=== PATIENT | female | born 1985 | race Caucasian/White ===

== ENCOUNTER → 2016-06-14 | Outpatient (CLI) | payer BC ==
[~2016-06-14] MED LIST: Iopamidol 755 MG/ML 500 ML Multipack Bottle IVPUSH STA
--- NOTE | 2016-06-16 09:59 | CT ---
EXAM DATE: 06/14/16 PATIENT'S AGE: 30 Patient: TAMMI GARRETT Facility: [facility] Site . Site : 1985 Study: CT-Abdomen/Pelvis W/ and W/O Cont [id number] 2:43:03 PM Ordering Physician: Mendy Nicholas Final Report: INDICATION: Abdominal distention and pain. Weight loss. Bloody stool. TECHNIQUE: Oral contrast mixture was administered prior to scanning. Volumetric helical scanning of the abdomen and pelvis was performed without and with 60 cc of Isovue 370 contrast material IV. Coronal and sagittal reconstructions were obtained. COMPARISON: None. FINDINGS: There is no evidence of bowel obstruction or inflammation. The appendix is not identified with certainty. No free fluid or free air is demonstrated. The liver is unremarkable except for several small cysts. No bile duct dilation is evident. The spleen, adrenal glands and pancreas are within normal limits. The kidneys are unremarkable. No lymphadenopathy is evident. The uterus and ovaries are unremarkable. The lung bases are clear. The heart is normal in size. IMPRESSION: 1. Etiology of patient`s symptoms not evident. No bowel abnormality apparent. 2. Small liver cysts. Dictated by Phil Gomez MD @ Jun 16 2016 8:01AM Signed by: Phil Gomez MD @06/16/2016 8:10:38 AM (Electronic Signature) Report Signed by Proxy and Original Signed Document filed in the Medical Record. [facility]OSPITAL[facility]uyen
== END ==
LOC: MW.DI 14:09
PROVIDERS: ATTEND Surgery
DX: R14.0 Abdominal distension (gaseous) (principal); K55.1 Chronic vascular disorders of intestine
CPT/HCPCS: 74178; Q9967

== ENCOUNTER 2016-06-23 10:02 | Day surgery (SDC) | payer BC ==
[~2016-06-23 10:02] MED LIST changes: -Iopamidol 755 MG/ML 500 ML Multipack Bottle IVPUSH STA; +Sodium Chloride 0.9% 10 ML Syringe FLUSH PRN; +Sodium Chloride 0.9% 2.5 ML Syringe FLUSH PRN
[2016-06-23] MEDS: Lactated Ringers 1,000 ML IV SCH (10:22)
--- NOTE | 2016-06-23 10:24 | PCM.PREANE ---
Preanesthetic Assessment - Anesthesia/Transfusion/Family Hx Anesthesia History: Prior Anesthesia Without Reaction Family History of Anesthesia Reaction: No Transfusion History: No Prior Transfusion(s) - Review of Systems General: No Symptoms Pulmonary: No Symptoms Cardiovascular: No Symptoms Gastrointestinal: No symptoms Neurological: No Symptoms Other: Reports: None - Physical Assessment O2 Sat by Pulse Oximetry: 100 Respiratory Rate: 14 Vital Signs: Last Vital Signs Temp 36.4 C 06/23/16 10:17 Pulse 76 06/23/16 10:17 Resp 14 06/23/16 10:17 BP 96/63 06/23/16 10:17 Pulse Ox 100 06/23/16 10:17 Height: 1.63 m Weight: 48.534 kg ASA Class: 2 Mental Status: Alert & Oriented x3 Airway Class: Mallampati = 1 Dentition: Reports: Normal Dentition ROM/Head Extension: Full Lungs: Clear to auscultation, Normal respiratory effort Cardiovascular: Regular Rate, Regular Rhythm - Allergies Allergies/Adverse Reactions: Allergies Allergy/AdvReac Type Severity Reaction Status Date / Time lactose Allergy Stomach Verified 06/21/16 10:09 Upset - Blood Blood Available: No - Anesthesia Plan Pre-Op Medication Ordered: None - Acknowledgements Anesthesia Type Planned: MAC Pt an Appropriate Candidate for the Planned Anesthesia: Yes Alternatives and Risks of Anesthesia Discussed w Pt/Guardian: Yes Pt/Guardian Understands and Agrees with Anesthesia Plan: Yes PreAnesthesia Questionnaire Other HEENT History: wears glasses Cardiovascular History: Reports: None Respiratory History: Reports: None Gastrointestinal History: Reports: Chronic constipation Other Gastrointestinal History: being tested for SMA syndrome Genitourinary History: Reports: None VIDEO NEWS EDITOR History: Reports: None Musculoskeletal History: Reports: Fracture Other Musculoskeletal History: hx of fx left heel and right arm (no hardware) Neurological History: Reports: None Psychiatric History: Reports: ADD Endocrine/Metabolic History: Reports: Hyperthyroidism Other Endocrine/Metabolic History: hx of hyperthyroidism, recent tests show thyroid to be normal Hematologic History: Reports: None Immunologic History: Reports: None Oncologic (Cancer) History: Reports: None Dermatologic History: Reports: Other (see below) Other Dermatologic History: adult acne - Past Surgical History Head Surgeries/Procedures: Reports: None HEENT Surgical History: Reports: Tonsillectomy Cardiovascular Surgical History: Reports: None Respiratory Surgical History: Reports: None GI Surgical History: Reports: Appendectomy Female Surgical History: Reports: None Endocrine Surgical History: Reports: None Neurological Surgical History: Reports: None Musculoskeletal Surgical History: Reports: None Oncologic Surgical History: Reports: None Dermatological Surgical History: Reports: None - SUBSTANCE USE Smoking Status *Q: Former Smoker Tobacco Use Within Last Twelve Months: Cigarettes Recreational Drug Use History: No - HOME MEDS Home Medications: Home Meds Lisdexamfetamine Dimesylate [Vyvanse] 1 tab PO DAILY 06/21/16 [History] Lubiprostone [Amitiza] 1 tab PO DAILY 06/21/16 [History] Multivitamin [Multivitamins] 1 tab PO DAILY 06/21/16 [History] - CURRENT (IN HOUSE) MEDS Current Meds: Current Medications Lactated Ringer's (Ringers, Lactated) 1,000 mls @ 125 mls/hr IV ASDIRECTED RANDEE Last Admin: 06/23/16 10:22 Dose: 125 mls/hr Sodium Chloride (Saline Flush) 10 ml FLUSH ASDIRECTED PRN PRN Reason: Keep Vein Open Sodium Chloride (Saline Flush) 2.5 ml FLUSH ASDIRECTED PRN PRN Reason: Keep Vein Open Preanesthetic Assessment - ANESTHESIA/TRANSFUSION/FAMILY HX Family History of Anesthesia Reaction: No - PHYSICAL ASSESSMENT O2 Sat by Pulse Oximetry: 100 RR: 14 Vital Signs: Last Vital Signs Temp 36.4 C 06/23/16 10:17 Pulse 76 06/23/16 10:17 Resp 14 06/23/16 10:17 BP 96/63 06/23/16 10:17 Pulse Ox 100 06/23/16 10:17 Height: 1.63 m Weight: 48.534 kg - ALLERGIES Allergies/Adverse Reactions: Allergies Allergy/AdvReac Type Severity Reaction Status Date / Time lactose Allergy Stomach Verified 06/21/16 10:09 Upset
[2016-06-23] MEDS ORDERED: Propofol 200 MG/20 ML SDV ONE ×2 (11:01→11:29)
[2016-06-23] MEDS ORDERED: fentaNYL 100 MCG/2 ML SDV ONE (11:01)
[2016-06-23] MEDS ORDERED: Midazolam 1 MG/ML 2 ML SDV ONE (11:01)
[2016-06-23] MEDS ORDERED: Lidocaine 2% 5 ML SDV ONE (11:01)
--- NOTE | 2016-06-23 11:50 | PCM.OPNOTE ---
- General Post-Op/Procedure Note Date of Surgery/Procedure: 06/23/16 Operative Procedure(s): Diagnostic egd and colonoscopy Findings: Normal EGD and colonoscopy Pre Op Diagnosis: Post prandial nausea and vomiting Post-Op Diagnosis: same Anesthesia Technique: MAC Primary Surgeon: Yu Brooke Condition: Good
[2016-06-23 12:23] VITALS: BP 96/54
--- NOTE | 2016-06-23 12:33 | PCM.POSTAN ---
POST ANESTHESIA ASSESSMENT - MENTAL STATUS Mental Status: alert, oriented - RESPIRATORY Respiratory Status: respiratory rate WNL, airway patent, O2 saturation stable - CARDIOVASCULAR CV Status: pulse rate WNL, blood pressure stable - GASTROINTESTINAL GI Status: no symptoms - POST OP HYDRATION Hydration Status: adequate & stable - OBSERVATIONS Free Text/Narrative:: no anesthesia problems
--- NOTE | 2016-06-23 18:48 | OR ---
SURGEON: LINDA FLORES MD DATE OF PROCEDURE: 06/23/2016 PREOPERATIVE DIAGNOSIS: Postprandial nausea and left upper quadrant pain. POSTOPERATIVE DIAGNOSIS: Postprandial nausea and left upper quadrant pain. PROCEDURE PERFORMED: Diagnostic esophagogastroduodenoscopy and colonoscopy. INSTRUMENT USED: Olympus endoscope and colonoscope. ANESTHESIA: MAC. EXTENT OF EXAM: To the second portion of the duodenum in the EGD portion and to the cecum in the colonoscopic portion. PREPARATION: Good. LIMITATIONS: None. INDICATIONS FOR EXAMINATION: The patient is a 30-year-old female, who has been experiencing postprandial abdominal pain and nausea. The patient has developed a food fear and is only eating one small meal at night. The patient's BMI is currently 17. A workup was completed including a CT of the abdomen which suggest possible SMA syndrome. As a part of her workup, we discussed performing a diagnostic EGD and colonoscopy. I explained to the patient, the procedure as well as expected perioperative course. We discussed the risks of the procedures including bleeding, infection, or damage to surrounding structures, including perforation. The patient verbalized understanding and wishes to proceed. PROCEDURE IN DETAIL: The patient was brought into the endoscopy suite and placed in the beach chair position. A time-out was completed verifying the patient's name, age, date of , allergies, and procedure to be performed. A bite-block was placed in the patient's mouth and monitored anesthesia care was induced. Oxygen was provided via nasal cannula throughout the procedure. After adequate sedation was achieved, the endoscope was placed in the patient's mouth and advanced under direct visualization to the level of the second portion of the duodenum. A photograph was taken within the second portion of the duodenum and the scope was slowly brought back while examining the color, texture, anatomy, and integrity of the mucosa along the upper GI tract. The duodenum appeared normal. The scope was brought into the stomach and a picture was taken of the pylorus as well as the esophageal hiatus which all appeared normal. The gastric mucosa showed no evidence of inflammation or ulceration. Biopsies were taken of the antrum, body, and fundus of the gastric mucosa. These biopsies were sent for H. pylori culture. The scope was then brought into the esophagus and a picture was taken of the GE junction which appeared normal. The scope was then removed from the patient and this completed the EGD portion of the exam. The patient was then turned into the left lateral decubitus position. Digital rectal exam was performed which was normal. A well-lubricated colonoscope was inserted in the rectum and advanced under direct visualization to the level of the cecum. The cecum was identified by both visual and anatomic landmarks. A photograph was taken of the cecal cap as well as with the scope retroflexed within the cecum. The scope was then straightened out and fully withdrawn while examining the color, texture, anatomy, and integrity of the mucosa from the cecum to the anal canal. The findings were consistent with normal colonic mucosa. The scope was brought into the rectum and retroflexed to allow visualization of the anal canal opening. This appeared normal and a photograph was taken. The scope was straightened out and removed from the patient. The cecum to anus time was 7 minutes. The patient was awoken and transferred to the recovery room in stable condition. ENDOSCOPIC DIAGNOSES: Normal esophagogastroduodenoscopy and colonoscopy. RECOMMENDATIONS: Follow up with the toy electric train repairer as previously arranged in clinic. REBEL ELMORE /[id number]
== END 2016-06-23 12:43 | disposition home or self-care (01) ==
LOC: MW.SDS 10:02
PROVIDERS: ATTEND Surgery
DX: K29.50 Unspecified chronic gastritis without bleeding (principal); Z88.8 Allergy status to other drugs, medicaments and biological substances; Z79.899 Other long term (current) drug therapy; Z90.49 Acquired absence of other specified parts of digestive tract; Z98.890 Other specified postprocedural states; Z86.39 Personal history of other endocrine, nutritional and metabolic disease; Z87.891 Personal history of nicotine dependence; Z72.0 Tobacco use
CPT/HCPCS: 43239; 45378; 81025; 88305; 88312; J2250; J3010; J7120; 00740; J2704

== ENCOUNTER 2016-09-11 15:17 | Emergency (ER) | payer BC ==
--- NOTE | 2016-09-11 15:35 | EDM.PDOC ---
ED HPI GENERAL MEDICAL PROBLEM - General Chief Complaint: Abdominal Pain Stated Complaint: NOT FEELING WELL Time Seen by Provider: 09/11/16 15:19 Source of Information: Reports: Patient History Limitations: Reports: No Limitations - History of Present Illness INITIAL COMMENTS - FREE TEXT/NARRATIVE: History of present illness: [] Patient has been dealing with abdominal pain for 2 years and has been evaluated at [facility] with testing but did not followup. She has had vomiting and is not been able to tolerate any food. She has been able to tolerate water. Her last bowel movement and last flatus was yesterday. 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 Patient also complains of lightheadedness, palpitations and a right-sided facial droop that began last night. Review of systems: As per history of present illness and below otherwise all systems reviewed and negative. Past medical history: As per history of present illness and as reviewed below otherwise noncontributory. Surgical history: As per history of present illness and as reviewed below otherwise noncontributory. Social history: No reported history of drug or alcohol abuse. Family history: As per history of present illness and as reviewed below otherwise noncontributory. Physical exam: General: Well developed, appears thin and dehydrated, speech is slow HEENT: Atraumatic, right-sided facial droop, pupils reactive, negative for conjunctival pallor or scleral icterus, mucous membranes moist, throat clear, neck supple, nontender, trachea midline. Lungs: Clear to auscultation, breath sounds equal bilaterally, chest nontender. Heart: S1S2, regular, negative for clicks, rubs, or JVD. Abdomen: Soft, nondistended, diffuse. Negative for masses or hepatosplenomegaly. Negative for costovertebral tenderness. Pelvis: Stable nontender. Genitourinary: Deferred. Rectal: Deferred. Extremities: Atraumatic, negative for cords or calf pain. Neurovascular unremarkable. Neuro: Awake, alert, oriented. Right-sided facial droop that is witnessed to be intermittent while she was in the ED. Cerebellum unremarkable. Motor and sensory unremarkable throughout. Exam nonfocal. Diagnostics: []labs show low potassium and chloride 2.6/87, abdominal x-rays ruling out obstruction, CT head done due to to the facial droop which is negative. EKG NSR , mildly prolonged QT, normal otherwise. Therapeutics: []patient was given IV hydration and pain meds while in the ED with improvement. 80 mEq of potassium chloride by mouth given Impression: []hypokalemia and hypochloremia secondary to vomiting. I called the hospitalist for potential admission. Since pt tolerated 80mEq Kcl in ED without further vomiting and a pre-made appointment with her PMD tomorrow, she can be d/ c'd with repeat KCL doses and recheck k+ level tomorrow. Pt is comfortable with this. Plan: []Zofran for nausea, take potassium supplement daily as directed,Tylenol for pain. Followup PMD for repeat potassium tomorrow as scheduled Definitive disposition and diagnosis as appropriate pending reevaluation and review of above. abdomen Pain Score (Numeric/FACES): 8 - Related Data Allergies Allergy/AdvReac Type Severity Reaction Status Date / Time lactose Allergy Stomach Verified 09/11/16 15:23 Upset Home Meds: Home Meds Lisdexamfetamine Dimesylate [Vyvanse] 1 tab PO DAILY 06/21/16 [History] Ondansetron [Zofran ODT] 4 mg PO Q4H PRN #12 tab.dis 09/11/16 [Rx] Potassium Chloride 20 meq PO DAILY #7 tablet.er 09/11/16 [Rx] Past Medical History Other HEENT History: wears glasses Cardiovascular History: Reports: None Respiratory History: Reports: None Gastrointestinal History: Reports: Chronic Constipation Other Gastrointestinal History: being tested for SMA syndrome Genitourinary History: Reports: None 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 History: Reports: None Musculoskeletal History: Reports: Fracture Other Musculoskeletal History: hx of fx left heel and right arm (no hardware) Neurological History: Reports: None Psychiatric History: Reports: ADD Endocrine/Metabolic History: Reports: Hyperthyroidism Other Endocrine/Metabolic History: hx of hyperthyroidism, recent tests show thyroid to be normal Hematologic History: Reports: None Immunologic History: Reports: None Oncologic (Cancer) History: Reports: None Dermatologic History: Reports: Other (See Below) Other Dermatologic History: adult acne - Past Surgical History Head Surgeries/Procedures: Reports: None HEENT Surgical History: Reports: Tonsillectomy Cardiovascular Surgical History: Reports: None Respiratory Surgical History: Reports: None GI Surgical History: Reports: Appendectomy Female Surgical History: Reports: None Endocrine Surgical History: Reports: None Neurological Surgical History: Reports: None Musculoskeletal Surgical History: Reports: None Oncologic Surgical History: Reports: None Dermatological Surgical History: Reports: None Social & Family History - Tobacco Use Smoking Status *Q: Former Smoker - Recreational Drug Use Recreational Drug Use: No Drug Use in Last 12 Months: No ED ROS GENERAL - Review of Systems Review Of Systems: See Below (See history of present illness) ED EXAM, GENERAL - Physical Exam Exam: See Below (See history of present illness) Course - Vital Signs Last Recorded V/S: Last Vital Signs Temp 36.9 C 09/11/16 15:25 Pulse 73 09/11/16 19:04 Resp 18 09/11/16 19:04 BP 99/64 09/11/16 19:04 Pulse Ox 99 09/11/16 19:04 - Orders/Labs/Meds Orders: Active Orders 24 hr Category Date Time Status EKG Documentation Completion [RC] STAT Care 09/11/16 15:48 Active Acute Abdominal Series [Abdomen 1V Upright] [CR] Stat Exams 09/11/16 15:36 Taken Head wo Cont [CT] Stat Exams 09/11/16 15:38 Taken Saline Lock Insert [OM.PC] Stat Oth 09/11/16 15:38 Ordered Labs: Laboratory Tests 09/11/16 09/11/16 09/11/16 Range/Units 16:15 16:15 16:15 WBC 7.83 (4.0-11.0) K/uL RBC 5.10 (4.30-5.90) M/uL Hgb 16.2 H (12.0-16.0) g/dL Hct 47.5 H (36.0-46.0) % MCV 93.1 (80.0-98.0) fL MCH 31.8 (27.0-32.0) pg MCHC 34.1 (31.0-37.0) g/dL RDW Std Deviation 40.8 (28.0-62.0) fl RDW Coeff of Juju 12 (11.0-15.0) % Plt Count 294 (150-400) K/uL MPV 10.70 (7.40-12.00) fL Neut % (Auto) 53.0 (48.0-80.0) % Lymph % (Auto) 29.4 (16.0-40.0) % [place] % (Auto) 13.8 (0.0-15.0) % Eos % (Auto) 3.2 (0.0-7.0) % Baso % (Auto) 0.6 (0.0-1.5) % Neut # (Auto) 4.2 (1.4-5.7) K/uL Lymph # (Auto) 2.3 (0.6-2.4) K/uL [place] # (Auto) 1.1 H (0.0-0.8) K/uL Eos # (Auto) 0.3 (0.0-0.7) K/uL Baso # (Auto) 0.1 (0.0-0.1) K/uL Nucleated RBC % 0.0 /100WBC Nucleated RBCs # 0 K/uL Sodium 134 L (136-146) mmol/L Potassium 2.6 L (3.5-5.1) mmol/L Chloride 87 L (98-110) mmol/L Carbon Dioxide 32 H (21-31) mmol/L BUN 20 (6.0-23.0) mg/dL Creatinine 1.2 (0.6-1.5) mg/dL Est Cr Clr Drug Dosing 52.81 mL/min Estimated GFR (MDRD) 52.7 ml/min Glucose 96 (60-110) mg/dL Calcium 8.6 L (8.8-10.8) mg/dL Total Bilirubin 0.8 (0.1-1.5) mg/dL AST 33 (5-40) IU/L ALT 28 (8-54) IU/L Alkaline Phosphatase 57 (40-150) Total Protein 7.4 (6.0-8.0) g/dL Albumin 4.7 (3.5-5.0) g/dL Globulin 2.7 (2.0-3.5) g/dL Albumin/Globulin Ratio 1.7 (1.3-2.8) Lipase 32 (7-80) U/L Urine Color Urine Appearance Urine pH (5.0-8.0) Ur Specific [place] (1.001-1.035) Urine Protein (NEGATIVE) mg/dL Urine Glucose (UA) (NEGATIVE) mg/dL Urine Ketones (NEGATIVE) mg/dL Urine Occult Blood (NEGATIVE) Urine Nitrite (NEGATIVE) Urine Bilirubin (NEGATIVE) Urine Urobilinogen (<2.0) EU/dL Ur Leukocyte Esterase (NEGATIVE) Urine RBC (0-2/HPF) Urine WBC (0-5/HPF) Ur Epithelial Cells (NONE-FEW) Urine Bacteria (NEGATIVE) Urine HCG, Qual NEGATIVE (NEGATIVE) 09/11/16 Range/Units 16:15 WBC (4.0-11.0) K/uL RBC (4.30-5.90) M/uL Hgb (12.0-16.0) g/dL Hct (36.0-46.0) % MCV (80.0-98.0) fL MCH (27.0-32.0) pg MCHC (31.0-37.0) g/dL RDW Std Deviation (28.0-62.0) fl RDW Coeff of Juju (11.0-15.0) % Plt Count (150-400) K/uL MPV (7.40-12.00) fL Neut % (Auto) (48.0-80.0) % Lymph % (Auto) (16.0-40.0) % [place] % (Auto) (0.0-15.0) % Eos % (Auto) (0.0-7.0) % Baso % (Auto) (0.0-1.5) % Neut # (Auto) (1.4-5.7) K/uL Lymph # (Auto) (0.6-2.4) K/uL [place] # (Auto) (0.0-0.8) K/uL Eos # (Auto) (0.0-0.7) K/uL Baso # (Auto) (0.0-0.1) K/uL Nucleated RBC % /100WBC Nucleated RBCs # K/uL Sodium (136-146) mmol/L Potassium (3.5-5.1) mmol/L Chloride (98-110) mmol/L Carbon Dioxide (21-31) mmol/L BUN (6.0-23.0) mg/dL Creatinine (0.6-1.5) mg/dL Est Cr Clr Drug Dosing mL/min Estimated GFR (MDRD) ml/min Glucose (60-110) mg/dL Calcium (8.8-10.8) mg/dL Total Bilirubin (0.1-1.5) mg/dL AST (5-40) IU/L ALT (8-54) IU/L Alkaline Phosphatase (40-150) Total Protein (6.0-8.0) g/dL Albumin (3.5-5.0) g/dL Globulin (2.0-3.5) g/dL Albumin/Globulin Ratio (1.3-2.8) Lipase (7-80) U/L Urine Color YELLOW Urine Appearance CLEAR Urine pH 6.5 (5.0-8.0) Ur Specific [place] 1.010 (1.001-1.035) Urine Protein NEGATIVE (NEGATIVE) mg/dL Urine Glucose (UA) NEGATIVE (NEGATIVE) mg/dL Urine Ketones NEGATIVE (NEGATIVE) mg/dL Urine Occult Blood SMALL H (NEGATIVE) Urine Nitrite NEGATIVE (NEGATIVE) Urine Bilirubin NEGATIVE (NEGATIVE) Urine Urobilinogen 0.2 (<2.0) EU/dL Ur Leukocyte Esterase NEGATIVE (NEGATIVE) Urine RBC 0-3 (0-2/HPF) Urine WBC 0-1 (0-5/HPF) Ur Epithelial Cells FEW (NONE-FEW) Urine Bacteria RARE (NEGATIVE) Urine HCG, Qual (NEGATIVE) Meds: Medications Discontinued Medications Generic Name Dose Route Start Last Admin Trade Name Freq PRN Reason Stop Dose Admin Sodium Chloride 1,000 mls @ 999 mls/hr 09/11/16 15:37 09/11/16 16:17 Normal Saline IV 09/11/16 16:37 999 mls/hr .Bolus ONE Administration Ondansetron HCl 4 mg 09/11/16 15:37 09/11/16 16:17 Zofran IVPUSH 09/11/16 15:38 4 mg ONETIME ONE Administration Ondansetron HCl Confirm 09/11/16 18:33 09/11/16 19:02 Zofran Administered 09/11/16 18:34 Not Given Dose 4 mg .ROUTE .STK-MED ONE Ondansetron HCl 4 mg 09/11/16 18:35 09/11/16 18:36 Zofran IVPUSH 09/11/16 18:36 4 mg ONETIME ONE Administration Potassium Chloride 80 meq 09/11/16 18:23 09/11/16 18:42 Klor-Con M20 PO 09/11/16 18:24 80 meq ONETIME ONE Administration Departure - Departure Time of Disposition: 18:41 Disposition: Home, Self-Care 01 Condition: good Clinical Impression: Hypokalemia, gastrointestinal losses, Hypochloremia - Discharge Information Prescriptions: Ondansetron [Zofran ODT] 4 mg PO Q4H PRN #12 tab.dis PRN Reason: Nausea Potassium Chloride 20 meq PO DAILY #7 tablet.er Instructions: Hypokalemia Referrals: PCP,None [Primary Care Provider] - Forms: ED Department Discharge Additional Instructions: The following information is given to patients seen in the emergency department who are being discharged to home. This information is to outline your options for follow-up care. We provide all patients seen in our emergency department with a follow-up referral. The need for follow-up, as well as the timing and circumstances, are variable depending upon the specifics of your emergency department visit. If you don't have a primary care physician on staff, we will provide you with a referral. We always advise you to contact your personal physician following an emergency department visit to inform them of the circumstance of the visit and for follow-up with them and/or the need for any referrals to a consulting specialist. The emergency department will also refer you to a specialist when appropriate. This referral assures that you have the opportunity for follow-up care with a specialist. All of these measure are taken in an effort to provide you with optimal care, which includes your follow-up. Under all circumstances we always encourage you to contact your private physician who remains a resource for coordinating your care. When calling for follow-up care, please make the office aware that this follow-up is from your recent emergency room visit. If for any reason you are refused follow-up, please contact the [facility] Emergency Department at and asked to speak to the emergency department charge nurse. Low potassium. Follow up with primary care tomorrow for repeat potassium level. Take potassium supplements daily as directed. Return to ER if any symptoms worsen or change. [facility] [address] [place] [id number] - My Orders Last 24 Hours: My Active Orders 09/11/16 15:36 Acute Abdominal Series [Abdomen 1V Upright] [CR] Stat 09/11/16 15:38 Head wo Cont [CT] Stat Saline Lock Insert [OM.PC] Stat 09/11/16 15:48 EKG Documentation Completion [RC] STAT - Assessment/Plan Last 24 Hours: My Active Orders 09/11/16 15:36 Acute Abdominal Series [Abdomen 1V Upright] [CR] Stat 09/11/16 15:38 Head wo Cont [CT] Stat Saline Lock Insert [OM.PC] Stat 09/11/16 15:48 EKG Documentation Completion [RC] STAT
[2016-09-11] MEDS ORDERED: Sodium Chloride 0.9% 1,000 ML IV ONE (15:37)
[2016-09-11] MEDS ORDERED: Ondansetron 4 MG/2 ML SDV IVPUSH ONE ×2 (15:37→18:35)
[2016-09-11] MEDS ORDERED: Sodium Chloride 0.9% 500 ML IV SCH (16:15)
[2016-09-11] MEDS ORDERED: Potassium Chloride 20 MEQ Tab.ER PO ONE (18:23)
[2016-09-11] MEDS: Ondansetron 4 MG/2 ML SDV ONE ×2 (18:36→19:02)
[2016-09-11 19:05] VITALS: BP 99/64
--- NOTE | 2016-09-12 10:07 | CT ---
EXAM DATE: 09/11/16 PATIENT'S AGE: 30 Patient: TAMMI GARRETT Facility: [place], [place] Site . Site : 1985 Study: CT Head [id number] 4:59:18 PM Ordering Physician: Eleno Glass Final Report: INDICATION: right sided facial droop since last night. dizzy, slurred speech. "pressure" in head, nausea, sinus pressure TECHNIQUE: CT Head without i.v. contrast. COMPARISON: None FINDINGS: CSF spaces: Within normal limits for age. Brain parenchyma: The brain parenchyma is normal in appearance with preservation of the nguyen-white matter junction. No sign of mass, hemorrhage, or midline shift. Skull base and calvarium: The visualized paranasal sinuses are well aerated. The mastoid air cells are clear. The visualized orbits are grossly unremarkable. No skull fractures are seen. C1 spina bifida occulta noted. IMPRESSION: 1. No CT evidence of acute infarct, hemorrhage, or mass effect seen. Dictated by: Jose Angel Beasley MD @ 09/11/2016 17:05:16 (Electronic Signature) Report Signed by Proxy. EVANGELINA
--- NOTE | 2016-09-12 10:08 | CR ---
EXAM DATE: 09/11/16 PATIENT'S AGE: 30 Patient: TAMMI GARRETT Facility: [place], [place] Site . Site : 1985 Study: XRay Abdomen [id number]/[id number] 5:03:34 PM Ordering Physician: Eleno Glass Final Report: INDICATION: Vomiting times for 5 days. Clinical suspicion for obstruction TECHNIQUE: Abdomen 3 view. COMPARISON: None FINDINGS: Bowel: Minimal air distended small bowel loops left upper quadrant but no definitive evidence for small bowel obstruction. Soft tissues: No sign of free air. No sign of soft tissue mass. No suspicious calcifications. Bones: Unremarkable for age. IMPRESSION: Unremarkable abdomen. No definitive evidence for bowel obstruction. Dictated by Mendoza Nugent MD @ 09/11/2016 5:12:15 PM Dictated by: Mendoza Nugent MD @ 09/11/2016 17:12:19 (Electronic Signature) Report Signed by Proxy. EVANGELINA
== END 2016-09-11 19:04 | disposition home or self-care (01) ==
LOC: MW.ED 15:17
DX: E87.6 Hypokalemia (principal); E87.8 Other disorders of electrolyte and fluid balance, not elsewhere classified; Z91.011 Allergy to milk products; Z79.899 Other long term (current) drug therapy; Z90.49 Acquired absence of other specified parts of digestive tract; Z98.890 Other specified postprocedural states; Z87.891 Personal history of nicotine dependence
CPT/HCPCS: 36415; 70450; 74000; 80053; 81001; 81025; 83690; 85025; 93005; 96361; 96374; 96376; 99284; A9270; J2405; J7040

== ENCOUNTER 2018-10-18 17:05 | Emergency (ER) | payer BC ==
[2018-10-18 17:16] VITALS: BP 123/74
--- NOTE | 2018-10-18 17:19 | EDM.PDOC ---
ED HPI GENERAL MEDICAL PROBLEM - General Chief Complaint: General Stated Complaint: MEDICAL CLEARANCE Time Seen by Provider: 10/18/18 17:06 Source of Information: Reports: Patient History Limitations: Reports: No Limitations - History of Present Illness INITIAL COMMENTS - FREE TEXT/NARRATIVE: History of present illness: []She is a months followed by Dr. Colon, brought in by police for alcohol intoxication. She states she has had an ultrasound doing an IUP and not had any complications with the . Review of systems: As per history of present illness and below otherwise all systems reviewed and negative. Past medical history: As per history of present illness and as reviewed below otherwise noncontributory. Surgical history: As per history of present illness and as reviewed below otherwise noncontributory. Social history: No reported history of drug or alcohol abuse. Family history: As per history of present illness and as reviewed below otherwise noncontributory. Physical exam: General: Well developed, well nourished in NAD HEENT: Atraumatic, normocephalic, pupils reactive, negative for conjunctival pallor or scleral icterus, mucous membranes moist, throat clear, neck supple, nontender, trachea midline. Lungs: Clear to auscultation, breath sounds equal bilaterally, chest nontender. Heart: S1S2, regular, negative for clicks, rubs, or JVD. Abdomen: NABS, Soft, nondistended, nontender heart tones 173 by Doppler. Negative for masses or hepatosplenomegaly. Negative for costovertebral tenderness. Pelvis: Stable nontender. Genitourinary: Deferred. Rectal: Deferred. Extremities: Atraumatic, negative for cords or calf pain. Neurovascular unremarkable. Neuro: Awake, alert, oriented. Cranial nerves II through XII unremarkable. Cerebellum unremarkable. Motor and sensory unremarkable throughout. Exam nonfocal. Skin:warm and dry Diagnostics: The heart tones-173 Therapeutics: None ED Course: Stable Impression: Medical clearance for incarceration Prescriptions: None Plan: Take meds as directed, follow up with your primary care physician, return to ER if symptoms worsen or change. Definitive disposition and diagnosis as appropriate pending reevaluation and review of above. - Related Data Allergies Allergy/AdvReac Type Severity Reaction Status Date / Time lactose Allergy Stomach Verified 09/11/16 15:23 Upset soy Allergy Nausea Verified 10/18/18 17:13 Home Meds: Home Meds Lisdexamfetamine Dimesylate [Vyvanse] 1 tab PO DAILY 06/21/16 [History] Ondansetron [Zofran ODT] 4 mg PO Q4H PRN #12 tab.dis 09/11/16 [Rx] Potassium Chloride 20 meq PO DAILY #7 tablet.er 09/11/16 [Rx] Past Medical History - Past Health History Medical/Surgical History: Denies Medical/Surgical History Other HEENT History: wears glasses Cardiovascular History: Reports: None Respiratory History: Reports: None Gastrointestinal History: Reports: Chronic Constipation Other Gastrointestinal History: being tested for SMA syndrome Genitourinary History: Reports: None 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 Musculoskeletal History: Reports: Fracture Other Musculoskeletal History: hx of fx left heel and right arm (no hardware) Neurological History: Reports: None Psychiatric History: Reports: ADD Endocrine/Metabolic History: Reports: Hyperthyroidism Other Endocrine/Metabolic History: hx of hyperthyroidism, recent tests show thyroid to be normal Hematologic History: Reports: None Immunologic History: Reports: None Oncologic (Cancer) History: Reports: None Dermatologic History: Reports: Other (See Below) Other Dermatologic History: adult acne - Past Surgical History Head Surgeries/Procedures: Reports: None HEENT Surgical History: Reports: Tonsillectomy Cardiovascular Surgical History: Reports: None Respiratory Surgical History: Reports: None GI Surgical History: Reports: Appendectomy Female Surgical History: Reports: None Endocrine Surgical History: Reports: None Neurological Surgical History: Reports: None Musculoskeletal Surgical History: Reports: None Oncologic Surgical History: Reports: None Dermatological Surgical History: Reports: None Social & Family History - Family History Family Medical History: Noncontributory ED ROS GENERAL - Review of Systems Review Of Systems: See Below ED EXAM, GENERAL - Physical Exam Exam: See Below Course - Vital Signs Last Recorded V/S: Last Vital Signs Temp 97.8 F 10/18/18 17:14 Pulse 115 H 10/18/18 17:14 Resp 18 10/18/18 17:14 BP 123/74 10/18/18 17:14 Pulse Ox 96 10/18/18 17:14 Departure - Departure Time of Disposition: 17:22 Disposition: Home, Self-Care 01 Condition: Good Clinical Impression: Medical clearance for incarceration - Discharge Information *PRESCRIPTION DRUG MONITORING PROGRAM REVIEWED*: No *COPY OF PRESCRIPTION DRUG MONITORING REPORT IN PATIENT RAJIV: No Referrals: PCP,None [Primary Care Provider] - Forms: ED Department Discharge Additional Instructions: The following information is given to patients seen in the emergency department who are being discharged to home. This information is to outline your options for follow-up care. We provide all patients seen in our emergency department with a follow-up referral. The need for follow-up, as well as the timing and circumstances, are variable depending upon the specifics of your emergency department visit. If you don't have a primary care physician on staff, we will provide you with a referral. We always advise you to contact your personal physician following an emergency department visit to inform them of the circumstance of the visit and for follow-up with them and/or the need for any referrals to a consulting specialist. The emergency department will also refer you to a specialist when appropriate. This referral assures that you have the opportunity for follow-up care with a specialist. All of these measure are taken in an effort to provide you with optimal care, which includes your follow-up. Under all circumstances we always encourage you to contact your private physician who remains a resource for coordinating your care. When calling for follow-up care, please make the office aware that this follow-up is from your recent emergency room visit. If for any reason you are refused follow-up, please contact the [facility] Emergency Department at and asked to speak to the emergency department charge nurse. [facility] - Women's [facility] [address] [place] [phone]
== END 2018-10-18 17:30 | disposition home or self-care (01) ==
LOC: MW.ED 17:05
DX: O99.311 Alcohol use complicating pregnancy, first trimester (principal); F10.129 Alcohol abuse with intoxication, unspecified; Z88.8 Allergy status to other drugs, medicaments and biological substances; Z98.890 Other specified postprocedural states; Z90.49 Acquired absence of other specified parts of digestive tract
CPT/HCPCS: 99282

== ENCOUNTER 2019-04-22 22:55 | Inpatient (IN) | payer SELFPAY ==
[2019-04-22] MEDS ORDERED: Butorphanol 1 MG/ML SDV IVPUSH PRN (23:17)
[2019-04-22] MEDS ORDERED: Carboprost Tromethamine 250 MCG/1 ML Amp IM PRN (23:17)
[2019-04-22] MEDS ORDERED: Sodium Chloride 0.9% 2.5 ML Syringe FLUSH PRN (23:17)
[2019-04-22] MEDS ORDERED: Sodium Chloride 0.9% 10 ML Syringe FLUSH PRN (23:17)
[2019-04-22] MEDS ORDERED: Tranexamic Acid 1,000 MG in Sodium Chloride 0.9% 100 ML IV PRN (23:17)
[2019-04-22] MEDS ORDERED: Water For Irrigation,Sterile 1,000 ML Container IRR PRN (23:17)
[2019-04-22] MEDS ORDERED: Sodium Chloride 0.9% 10 ML SDV IV PRN (23:17)
[2019-04-22] MEDS ORDERED: Lidocaine 1% 50 ML MDV INJECT PRN (23:17)
[2019-04-22] MEDS ORDERED: Methylergonovine 0.2 MG/1 ML Amp IM PRN (23:17)
[2019-04-22] MEDS ORDERED: Misoprostol 200 MCG Tab PO PRN (23:17)
[2019-04-22] MEDS ORDERED: Nalbuphine 10 MG/1 ML Vial IVPUSH PRN (23:17)
[2019-04-22] MEDS ORDERED: Oxytocin/0.9 % Sodium Chloride 30 UNIT/500 ML BAG IV SCH (23:30)
[2019-04-22] MEDS: Lactated Ringers 1,000 ML IV SCH (23:36)
[2019-04-23] MEDS ORDERED: Bupivicaine/fentaNYL/NS 250 ML ONE (00:08)
[2019-04-23] MEDS: Lactated Ringers 1,000 ML IV SCH (00:31)
--- NOTE | 2019-04-23 00:50 | PCM.PREANE ---
Preanesthetic Assessment - Procedure Proposed Procedure: continuous labor epidural - Anesthesia/Transfusion/Family Hx Anesthesia History: Prior Anesthesia Without Reaction Family History of Anesthesia Reaction: No Transfusion History: No Prior Transfusion(s) - Review of Systems General: No Symptoms Pulmonary: No Symptoms Cardiovascular: No Symptoms Gastrointestinal: No Symptoms Neurological: No Symptoms Other: Reports: None - Physical Assessment Height: 5 ft 2 in Weight: 68.039 kg ASA Class: 2 Mental Status: Alert & Oriented x3 Dentition: Reports: Normal Dentition ROM/Head Extension: Full Lungs: Clear to Auscultation, Normal Respiratory Effort Cardiovascular: Regular Rate, Regular Rhythm - Lab Values: Laboratory Last Values WBC 14.38 K/uL (4.0-11.0) H 04/22/19 23:33 RBC 4.08 M/uL (4.30-5.90) L 04/22/19 23:33 Hgb 13.6 g/dL (12.0-16.0) 04/22/19 23: Hct 39.6 % (36.0-46.0) 04/22/19 23: MCV 97.1 fL (80.0-98.0) 04/22/19 23:33 MCH 33.3 pg (27.0-32.0) H 04/22/19 23: MCHC 34.3 g/dL (31.0-37.0) 04/22/19 23:33 RDW Std Deviation 46.3 fl (28.0-62.0) 04/22/19 23:33 RDW Coeff of Juju 13 % (11.0-15.0) 04/22/19 23: Plt Count 237 K/uL (150-400) 04/22/19 23:33 MPV 11.10 fL (7.40-12.00) 04/22/19 23:33 Nucleated RBC % 0.0 /100WBC 04/22/19 23: Nucleated RBCs # 0 K/uL 04/22/19 23:33 Blood Type O NEGATIVE 04/22/19 23:33 Antibody Screen NEGATIVE 04/22/19 23:33 - Allergies Allergies/Adverse Reactions: Allergies Allergy/AdvReac Type Severity Reaction Status Date / Time lactose Allergy Stomach Verified 09/11/16 15:23 Upset soy Allergy Nausea Verified 10/18/18 17:13 - Acknowledgements Anesthesia Type Planned: Epidural Pt an Appropriate Candidate for the Planned Anesthesia: Yes Alternatives and Risks of Anesthesia Discussed w Pt/Guardian: Yes Pt/Guardian Understands and Agrees with Anesthesia Plan: Yes PreAnesthesia Questionnaire HEENT History: Reports: None Other HEENT History: wears glasses Cardiovascular History: Reports: None Respiratory History: Reports: None Gastrointestinal History: Reports: Chronic Constipation Other Gastrointestinal History: being tested for SMA syndrome Genitourinary History: Reports: None 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: Musculoskeletal History: Reports: Fracture Other Musculoskeletal History: hx of fx left heel and right arm (no hardware) Neurological History: Reports: None Psychiatric History: Reports: ADD Endocrine/Metabolic History: Reports: Hyperthyroidism Other Endocrine/Metabolic History: hx of hyperthyroidism, recent tests show thyroid to be normal Hematologic History: Reports: None Immunologic History: Reports: None Oncologic (Cancer) History: Reports: None Dermatologic History: Reports: Other (See Below) Other Dermatologic History: adult acne - Infectious Disease History Infectious Disease History: Reports: Chicken Pox - Past Surgical History Head Surgeries/Procedures: Reports: None HEENT Surgical History: Reports: Tonsillectomy Cardiovascular Surgical History: Reports: None Respiratory Surgical History: Reports: None GI Surgical History: Reports: Appendectomy Female Surgical History: Reports: None Endocrine Surgical History: Reports: None Neurological Surgical History: Reports: None Musculoskeletal Surgical History: Reports: None Oncologic Surgical History: Reports: None Dermatological Surgical History: Reports: None - HOME MEDS Home Medications: Home Meds Lisdexamfetamine Dimesylate [Vyvanse] 1 tab PO DAILY 06/21/16 [History] Ondansetron [Zofran ODT] 4 mg PO Q4H PRN #12 tab.dis 09/11/16 [Rx] Potassium Chloride 20 meq PO DAILY #7 tablet.er 09/11/16 [Rx] - CURRENT (IN HOUSE) MEDS Current Meds: Current Medications Butorphanol Tartrate (Stadol) 1 mg IVPUSH Q1H PRN PRN Reason: Pain Carboprost Tromethamine (Hemabate Ds) 250 mcg IM ASDIRECTED PRN PRN Reason: Post Hemorrhage Lactated Ringer's (Ringers, Lactated) 1,000 mls @ 150 mls/hr IV ASDIRECTED RANDEE Last Admin: 04/23/19 00:31 Dose: 999 mls/hr Oxytocin/Sodium Chloride (Oxytocin 30 Unit/500 Ml-Ns) 30 unit in 500 mls @ 999 mls/hr IV TITRATE RANDEE Tranexamic Acid 1,000 mg/ (Sodium Chloride) 110 mls @ 660 mls/hr IV ONETIME PRN PRN Reason: Bleeding Lidocaine HCl (Xylocaine 1%) 50 ml INJECT ONETIME PRN PRN Reason: Laceration repair Methylergonovine Maleate (Methergine) 0.2 mg IM ASDIRECTED PRN PRN Reason: Post Hemorrhage Misoprostol (Cytotec) 200 mcg PO ONETIME PRN PRN Reason: Post Hemorrhage Nalbuphine HCl (Nubain) 10 mg IVPUSH Q1H PRN PRN Reason: Pain (severe 7-10) Sodium Chloride (Saline Flush) 10 ml FLUSH ASDIRECTED PRN PRN Reason: Keep Vein Open Sodium Chloride (Saline Flush) 2.5 ml FLUSH ASDIRECTED PRN PRN Reason: Keep Vein Open Sodium Chloride (Normal Saline) 10 ml IV ASDIRECTED PRN PRN Reason: IV Use Sterile Water (Sterile Water For Irrigation) 1,000 ml IRR ASDIRECTED PRN PRN Reason: delivery Discontinued Medications Fentanyl/Bupivacaine HCl (Fentanyl/Bupivacaine/Ns 2 Mcg-0.125% 250 Ml) Confirm Administered Dose 250 mls @ as directed .ROUTE .[facility] Stop: 04/23/19 00:09
[2019-04-23] MEDS ORDERED: Oxytocin/0.9 % Sodium Chloride 30 UNIT/500 ML BAG ONE (01:23)
--- NOTE | 2019-04-23 01:47 | PCM.LDHP ---
L&D History of Present Illness - General Date of Service: 04/23/19 Admit Problem/Dx: Patient Status Order with Admit Dx/Problem 04/22/19 23:18 Patient Status [ADT] Routine Admission Diagnosis/Problem Admission Diagnosis/Problem Source of Information: Patient History Limitations: Reports: No Limitations - History of Present Illness Improves with: Reports: None Worsens with: Reports: None Associated Symptoms: Reports: N - Related Data Allergies/Adverse Reactions: Allergies Allergy/AdvReac Type Severity Reaction Status Date / Time lactose Allergy Stomach Verified 09/11/16 15:23 Upset soy Allergy Nausea Verified 10/18/18 17:13 Home Medications: Home Meds Lisdexamfetamine Dimesylate [Vyvanse] 1 tab PO DAILY 06/21/16 [History] Ondansetron [Zofran ODT] 4 mg PO Q4H PRN #12 tab.dis 09/11/16 [Rx] Potassium Chloride 20 meq PO DAILY #7 tablet.er 09/11/16 [Rx] Past Medical History HEENT History: Reports: None Other HEENT History: wears glasses Cardiovascular History: Reports: None Respiratory History: Reports: None Gastrointestinal History: Reports: Chronic Constipation Other Gastrointestinal History: being tested for SMA syndrome Genitourinary History: Reports: None 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: Musculoskeletal History: Reports: Fracture Other Musculoskeletal History: hx of fx left heel and right arm (no hardware) Neurological History: Reports: None Psychiatric History: Reports: ADD Endocrine/Metabolic History: Reports: Hyperthyroidism Other Endocrine/Metabolic History: hx of hyperthyroidism, recent tests show thyroid to be normal Hematologic History: Reports: None Immunologic History: Reports: None Oncologic (Cancer) History: Reports: None Dermatologic History: Reports: Other (See Below) Other Dermatologic History: adult acne - Infectious Disease History Infectious Disease History: Reports: Chicken Pox - Past Surgical History Head Surgeries/Procedures: Reports: None HEENT Surgical History: Reports: Tonsillectomy Cardiovascular Surgical History: Reports: None Respiratory Surgical History: Reports: None GI Surgical History: Reports: Appendectomy Female Surgical History: Reports: None Endocrine Surgical History: Reports: None Neurological Surgical History: Reports: None Musculoskeletal Surgical History: Reports: None Oncologic Surgical History: Reports: None Dermatological Surgical History: Reports: None Social & Family History - Family History Family Medical History: Noncontributory H&P Review of Systems - Review of Systems: Review Of Systems: See Below General: Reports: No Symptoms HEENT: Reports: No Symptoms Pulmonary: Reports: No Symptoms Cardiovascular: Reports: No Symptoms Gastrointestinal: Reports: No Symptoms Genitourinary: Reports: No Symptoms Musculoskeletal: Reports: No Symptoms Skin: Reports: No Symptoms Psychiatric: Reports: No Symptoms Neurological: Reports: No Symptoms Hematologic/Lymphatic: Reports: No Symptoms Immunologic: Reports: No Symptoms L&D Exam - Exam Exam: See Below - Vital Signs Weight: 68.039 kg - OB Specific Contraction Intensity: Moderate Movement: Active Heart Tones: Present Presentation: Vertex - Hodge Score Hodge Score Cervix Position: Anterior Hodge Score Consistency: Soft Hodge Score Effacement: >80% Hodge Score Dilation: 3-4 cm Hodge Score 's Station: -3 Hodge Score Total: 9 - Exam General: Alert, Oriented HEENT: PERRLA, Conjunctiva Clear, EACs Clear, EOMI, Hearing Intact, Mucosa Moist & [place], Nares Patent, Normal Nasal Septum, Posterior Pharynx Clear, TMs Clear Neck: Supple, Trachea Midline Lungs: Clear to Auscultation, Normal Respiratory Effort Cardiovascular: Regular Rate, Regular Rhythm GI/Abdominal Exam: Normal Bowel Sounds, Soft, Non-Tender, No Organomegaly, No Distention, No Abnormal Bruit, No Mass, Pelvis Stable Rectal Exam: Normal Exam, Normal Rectal Tone Genitourinary: Normal external exam, Normal bimanual exam, Normal speculum exam Back Exam: Normal Inspection, Full Range of Motion Extremities: Normal Inspection, Normal Range of Motion, Non-Tender, No Pedal Edema, Normal Capillary Refill Skin: Warm, Dry, Intact Neurological: Cranial Nerves Intact, Reflexes Equal Bilateral Psychiatric: Alert, Normal Affect, Normal Mood - Patient Data Lab Results Last 24 hrs: Laboratory Results - last 24 hr 04/22/19 04/22/19 Range/Units 23:33 23:33 WBC 14.38 H (4.0-11.0) K/uL RBC 4.08 L (4.30-5.90) M/uL Hgb 13.6 (12.0-16.0) g/dL Hct 39.6 (36.0-46.0) % MCV 97.1 (80.0-98.0) fL MCH 33.3 H (27.0-32.0) pg MCHC 34.3 (31.0-37.0) g/dL RDW Std Deviation 46.3 (28.0-62.0) fl RDW Coeff of Juju 13 (11.0-15.0) % Plt Count 237 (150-400) K/uL MPV 11.10 (7.40-12.00) fL Nucleated RBC % 0.0 /100WBC Nucleated RBCs # 0 K/uL Blood Type O NEGATIVE Antibody Screen NEGATIVE Result Diagrams: 04/22/19 23:33 Problem List Initiated/Reviewed/Updated: Yes Orders Last 24hrs: Active Orders 24 hr Category Date Time Status Patient Status [ADT] Routine ADT 04/22/19 23:18 Active May Shower [RC] ASDIRECTED Care 04/22/19 23:18 Active Notify Provider [RC] PRN Care 04/22/19 23:18 Active Up ad Vero [RC] ASDIRECTED Care 04/22/19 23:18 Active Vital Signs [RC] PER UNIT ROUTINE Care 04/22/19 23:18 Active RAPID PLASMA REAGIN, QUANT [REF] Routine Lab 04/22/19 23:33 Received Butorphanol [Stadol] Med 04/22/19 23:17 Active 1 mg IVPUSH Q1H PRN Carboprost Tromethamine [Hemabate DS] Med 04/22/19 23:17 Active 250 mcg IM ASDIRECTED PRN Lactated Ringers [Ringers, Lactated] 1,000 ml Med 04/22/19 23:30 Active IV ASDIRECTED Lidocaine 1% [Xylocaine 1%] Med 04/22/19 23:17 Active 50 ml INJECT ONETIME PRN Methylergonovine [Methergine] Med 04/22/19 23:17 Active 0.2 mg IM ASDIRECTED PRN Nalbuphine [Nubain] Med 04/22/19 23:17 Active 10 mg IVPUSH Q1H PRN Oxytocin/0.9 % Sodium Chloride [Oxytocin 30 Unit/500 ML Med 04/22/19 23:30 Active -NS] 30 unit in 500 ml IV TITRATE Sodium Chloride 0.9% [Normal Saline] Med 04/22/19 23:17 Active 10 ml IV ASDIRECTED PRN Sodium Chloride 0.9% [Saline Flush] Med 04/22/19 23:17 Active 10 ml FLUSH ASDIRECTED PRN Sodium Chloride 0.9% [Saline Flush] Med 04/22/19 23:17 Active 2.5 ml FLUSH ASDIRECTED PRN Tranexamic Acid [Cyklokapron] 1,000 mg Med 04/22/19 23:17 Active Sodium Chloride 0.9% [Normal Saline] 100 ml IV ONETIME Water For Irrigation,Sterile [Sterile Water for Med 04/22/19 23:17 Active Irrigation] 1,000 ml IRR ASDIRECTED PRN miSOPROStoL [Cytotec] Med 04/22/19 23:17 Active 200 mcg PO ONETIME PRN Scalp Electrode [WOMSER] Per Unit Routine Oth 04/22/19 23:18 Ordered Peripheral IV Insertion Adult [OM.PC] Routine Oth 04/22/19 23:18 Ordered Resuscitation Status Routine Resus Stat 04/22/19 23:17 Ordered Medication Orders Butorphanol Tartrate (Stadol) 1 mg IVPUSH Q1H PRN PRN Reason: Pain Carboprost Tromethamine (Hemabate Ds) 250 mcg IM ASDIRECTED PRN PRN Reason: Post Hemorrhage Lactated Ringer's (Ringers, Lactated) 1,000 mls @ 150 mls/hr IV ASDIRECTED [facility] Last Admin: 04/23/19 00:31 Dose: 999 mls/hr Infusion: 04/23/19 00:31 Dose: 999 mls/hr Admin: 04/22/19 23:36 Dose: 999 mls/hr Oxytocin/Sodium Chloride (Oxytocin 30 Unit/500 Ml-Ns) 30 unit in 500 mls @ 999 mls/hr IV TITRATE [facility] Tranexamic Acid 1,000 mg/ (Sodium Chloride) 110 mls @ 660 mls/hr IV ONETIME PRN PRN Reason: Bleeding Lidocaine HCl (Xylocaine 1%) 50 ml INJECT ONETIME PRN PRN Reason: Laceration repair Methylergonovine Maleate (Methergine) 0.2 mg IM ASDIRECTED PRN PRN Reason: Post Hemorrhage Misoprostol (Cytotec) 200 mcg PO ONETIME PRN PRN Reason: Post Hemorrhage Nalbuphine HCl (Nubain) 10 mg IVPUSH Q1H PRN PRN Reason: Pain (severe 7-10) Sodium Chloride (Saline Flush) 10 ml FLUSH ASDIRECTED PRN PRN Reason: Keep Vein Open Sodium Chloride (Saline Flush) 2.5 ml FLUSH ASDIRECTED PRN PRN Reason: Keep Vein Open Sodium Chloride (Normal Saline) 10 ml IV ASDIRECTED PRN PRN Reason: IV Use Sterile Water (Sterile Water For Irrigation) 1,000 ml IRR ASDIRECTED PRN PRN Reason: delivery Assessment/Plan Comment:: Term in active labor.
[2019-04-23] MEDS ORDERED: Lanolin 100% Cream 7 GM Tube TOP PRN (01:59)
[2019-04-23] MEDS ORDERED: Bisacodyl 10 MG Supp RECTAL PRN (01:59)
[2019-04-23] MEDS ORDERED: oxyCODONE 5 MG Tab PO PRN (01:59)
[2019-04-23] MEDS ORDERED: Benzocaine/Menthol 20%-0.5% Spray 78 GM Cannister TOP PRN (01:59)
[2019-04-23] MEDS ORDERED: Ibuprofen 400 MG Tab PO PRN (01:59)
[2019-04-23] MEDS ORDERED: Acetaminophen 500 MG Tab PO PRN ×2 (01:59)
[2019-04-23] MEDS ORDERED: Docusate Sodium 100 MG Cap PO PRN (01:59)
[2019-04-23] MEDS ORDERED: Ibuprofen 800 MG Tab PO PRN (01:59)
[2019-04-23] MEDS ORDERED: Witch Hazel Medicated Pads 40/Jar TOP PRN (01:59)
--- NOTE | 2019-04-23 03:52 | OR ---
SURGEON: Russ Colon MD DATE OF PROCEDURE: Ms. Tariq is 33 years old. She is primigravida. She is followed in our clinic. She had uncomplicated care. Her GBS status is negative. She is 38 weeks plus. She is admitted in active labor. By the time of admission, she was 4 cm, complete, vertex with bulging bag of water and contractions every 3 to 4 minutes. The patient had epidural anesthesia for labor analgesia. She had spontaneous rupture of the membrane with meconium-stained fluid. The patient continued to progress and she then became complete-complete, and after pushing for 25 to 30 minutes, she was able to accomplish normal spontaneous vaginal delivery, female fetus, cried immediately. score was reported to be 8 and 9. The placenta delivered spontaneous, complete, and intact without any problem. There was no perineal, labial, or vaginal laceration. ESTIMATED BLOOD LOSS: 250 to 300 mL. heart rate was category 1 through the entire process from labor. There was no complication in the labor or in the delivery process. MATT / RAMÍREZ /[id number]
--- NOTE | 2019-04-23 08:21 | PCM48HPAN ---
Post Anesthesia Note - EVALUATION WITHIN 48HRS OF ANESTHETIC Vital Signs in Normal Range: Yes Patient Participated in Evaluation: Yes Respiratory Function Stable: Yes Airway Patent: Yes Cardiovascular Function Stable: Yes Hydration Status Stable: Yes Pain Control Satisfactory: Yes Nausea and Vomiting Control Satisfactory: Yes Mental Status Recovered: Yes
--- NOTE | 2019-04-24 09:00 | PCM.PNPP ---
- General Info Date of Service: 04/24/19 Functional Status: Reports: Pain Controlled - Review of Systems General: Reports: No Symptoms HEENT: Reports: No Symptoms Pulmonary: Reports: No Symptoms Cardiovascular: Reports: No Symptoms Gastrointestinal: Reports: No Symptoms Genitourinary: Reports: No Symptoms Musculoskeletal: Reports: No Symptoms Skin: Reports: No Symptoms Neurological: Reports: No Symptoms Psychiatric: Reports: No Symptoms - General Info Date of Service: 04/24/19 - Patient Data Vital Signs - Most Recent: Last Vital Signs Temp 36.0 C 04/24/19 03:53 Pulse 71 04/24/19 03:53 Resp 18 04/24/19 03:53 BP 99/67 04/24/19 03:53 Pulse Ox 95 04/24/19 03:53 Weight - Most Recent: 68.039 kg I&O - Last 24 Hours: Intake & Output 04/23/19 04/24/19 04/24/19 22:59 06:59 14:59 Intake Total 2 Balance 2 Lab Results - Last 24 Hours: Laboratory Results - last 24 hr 04/23/19 04/24/19 Range/Units 03:10 05:57 Hgb 11.5 L (12.0-16.0) g/dL Hct 34.7 L (36.0-46.0) % Screen NEGATIVE (NEGATIVE) RhIG Candidate? YES Rhogam Indicated YES, BABY RH POS H Med Orders - Current: Current Medications Acetaminophen (Tylenol Extra Strength) 500 mg PO Q4H PRN PRN Reason: Pain Acetaminophen (Tylenol Extra Strength) 1,000 mg PO Q4H PRN PRN Reason: Pain Benzocaine/Menthol (Dermoplast Pain Relief 20%-0.5% [place]) 78 gm TOP ASDIRECTED PRN PRN Reason: Perineal Comfort Measure Bisacodyl (Dulcolax) 10 mg RECTAL ONETIME PRN PRN Reason: Constipation Butorphanol Tartrate (Stadol) 1 mg IVPUSH Q1H PRN PRN Reason: Pain Carboprost Tromethamine (Hemabate Ds) 250 mcg IM ASDIRECTED PRN PRN Reason: Post Hemorrhage Docusate Sodium (Colace) 100 mg PO BID PRN PRN Reason: Constipation Emollient Ointment (Lansinoh Hpa) 0 gm TOP ASDIRECTED PRN PRN Reason: Sore Nipples Lactated Ringer's (Ringers, Lactated) 1,000 mls @ 150 mls/hr IV ASDIRECTED [facility] Last Admin: 04/23/19 00:31 Dose: 999 mls/hr Oxytocin/Sodium Chloride (Oxytocin 30 Unit/500 Ml-Ns) 30 unit in 500 mls @ 999 mls/hr IV TITRATE [facility] Last Admin: 04/23/19 01:58 Dose: 999 mls/hr Tranexamic Acid 1,000 mg/ (Sodium Chloride) 110 mls @ 660 mls/hr IV ONETIME PRN PRN Reason: Bleeding Ibuprofen (Motrin) 400 mg PO Q4H PRN PRN Reason: Pain Ibuprofen (Motrin) 800 mg PO Q6H PRN PRN Reason: Pain Lidocaine HCl (Xylocaine 1%) 50 ml INJECT ONETIME PRN PRN Reason: Laceration repair Methylergonovine Maleate (Methergine) 0.2 mg IM ASDIRECTED PRN PRN Reason: Post Hemorrhage Misoprostol (Cytotec) 200 mcg PO ONETIME PRN PRN Reason: Post Hemorrhage Nalbuphine HCl (Nubain) 10 mg IVPUSH Q1H PRN PRN Reason: Pain (severe 7-10) Oxycodone HCl (Oxycodone) 5 mg PO Q2H PRN PRN Reason: Pain Sodium Chloride (Saline Flush) 10 ml FLUSH ASDIRECTED PRN PRN Reason: Keep Vein Open Sodium Chloride (Saline Flush) 2.5 ml FLUSH ASDIRECTED PRN PRN Reason: Keep Vein Open Sodium Chloride (Normal Saline) 10 ml IV ASDIRECTED PRN PRN Reason: IV Use Sterile Water (Sterile Water For Irrigation) 1,000 ml IRR ASDIRECTED PRN PRN Reason: delivery Last Admin: 04/23/19 02:09 Dose: 1,000 ml Witch Oumou (Tucks) 1 pad TOP ASDIRECTED PRN PRN Reason: comfort care Discontinued Medications Fentanyl/Bupivacaine HCl (Fentanyl/Bupivacaine/Ns 2 Mcg-0.125% 250 Ml) Confirm Administered Dose 250 mls @ as directed .ROUTE .STK-MED ONE Stop: 04/23/19 00:09 Last Admin: 04/23/19 10:13 Dose: Not Given Oxytocin/Sodium Chloride (Oxytocin 30 Unit/500 Ml-Ns) Confirm Administered Dose 30 unit in 500 mls @ as directed .ROUTE .STK-MED ONE Stop: 04/23/19 01:24 Last Admin: 04/23/19 10:14 Dose: Not Given - Infant Interaction Infant Disposition, : in Room with Family Interaction: Holding Infant Feeding: Attempted ; Nursed Fair/Poor Support Person: Significant Other - Recovery Exam Fundal Tone: Firm Fundal Level: 1 Fingerbreadths Below Umbilicus Fundal Placement: Midline Lochia Amount: Small Lochia Color: Rubra/Red Perineum Description: Intact, Minimal Bruising/Swelling Episiotomy/Laceration: None Bladder Status: Voiding Urinary Elimination: Voided - Exam General: Alert, Oriented HEENT: Pupils Equal Neck: Supple Lungs: Clear to Auscultation, Normal Respiratory Effort Cardiovascular: Regular Rate, Regular Rhythm GI/Abdominal Exam: Normal Bowel Sounds, Soft, Non-Tender, No Organomegaly, No Distention, No Abnormal Bruit, No Mass, Pelvis Stable Extremities: Normal Inspection, Normal Range of Motion, Non-Tender, No Pedal Edema, Normal Capillary Refill Skin: Warm, Dry, Intact Wound/Incisions: Healing Well Neurological: No New Focal Deficit Psy/Mental Status: Alert, Normal Affect, Normal Mood - Problem List Review Problem List Initiated/Reviewed/Updated: Yes - Assessment Assessment:: S/P doing well and going home. - Plan Plan:: Term in active labor.
[2019-04-25 08:12] VITALS: BP 102/70; PULSE 92
--- NOTE | 2019-04-25 09:03 | PCM.DCSUM1 ---
Discharge Summary - Hospital Course Diagnosis: Stroke: No - Discharge Data Discharge Date: 04/25/19 Discharge Disposition: Home, Self-Care 01 Condition: Good - Referral to Home Health Primary Care Physician: Russ Colon MD - Patient Instructions Diet: Usual Diet as Tolerated Activity: As Tolerated Driving: May Drive Today Showering/Bathing: May Shower - Discharge Plan Home Medications: Home Meds Lisdexamfetamine Dimesylate [Vyvanse] 1 tab PO DAILY 06/21/16 [History] Ondansetron [Zofran ODT] 4 mg PO Q4H PRN #12 tab.dis 09/11/16 [Rx] Potassium Chloride 20 meq PO DAILY #7 tablet.er 09/11/16 [Rx] Referrals: [facility] [Outside] Russ Colon MD [Primary Care Provider] - 06/04/19 9:30 am - Discharge Summary/Plan Comment DC Time >30 min.: Yes - General Info Date of Service: 04/25/19 Functional Status: Reports: Pain Controlled - Review of Systems General: Reports: No Symptoms HEENT: Reports: No Symptoms Pulmonary: Reports: No Symptoms Cardiovascular: Reports: No Symptoms Gastrointestinal: Reports: No Symptoms Genitourinary: Reports: No Symptoms Musculoskeletal: Reports: No Symptoms Skin: Reports: No Symptoms Neurological: Reports: No Symptoms Psychiatric: Reports: No Symptoms - Patient Data Vitals - Most Recent: Last Vital Signs Temp 36.2 C 04/25/19 08:00 Pulse 92 04/25/19 08:00 Resp 16 04/25/19 08:00 BP 102/70 04/25/19 08:00 Pulse Ox 100 04/25/19 08:00 Weight - Most Recent: 68.039 kg Med Orders - Current: Current Medications Acetaminophen (Tylenol Extra Strength) 500 mg PO Q4H PRN PRN Reason: Pain Acetaminophen (Tylenol Extra Strength) 1,000 mg PO Q4H PRN PRN Reason: Pain Benzocaine/Menthol (Dermoplast Pain Relief 20%-0.5% [place]) 78 gm TOP ASDIRECTED PRN PRN Reason: Perineal Comfort Measure Bisacodyl (Dulcolax) 10 mg RECTAL ONETIME PRN PRN Reason: Constipation Butorphanol Tartrate (Stadol) 1 mg IVPUSH Q1H PRN PRN Reason: Pain Carboprost Tromethamine (Hemabate Ds) 250 mcg IM ASDIRECTED PRN PRN Reason: Post Hemorrhage Docusate Sodium (Colace) 100 mg PO BID PRN PRN Reason: Constipation Last Admin: 04/24/19 20:13 Dose: 100 mg Emollient Ointment (Lansinoh Hpa) 0 gm TOP ASDIRECTED PRN PRN Reason: Sore Nipples Lactated Ringer's (Ringers, Lactated) 1,000 mls @ 150 mls/hr IV ASDIRECTED [facility] Last Admin: 04/23/19 00:31 Dose: 999 mls/hr Oxytocin/Sodium Chloride (Oxytocin 30 Unit/500 Ml-Ns) 30 unit in 500 mls @ 999 mls/hr IV TITRATE [facility] Last Admin: 04/23/19 01:58 Dose: 999 mls/hr Tranexamic Acid 1,000 mg/ (Sodium Chloride) 110 mls @ 660 mls/hr IV ONETIME PRN PRN Reason: Bleeding Ibuprofen (Motrin) 400 mg PO Q4H PRN PRN Reason: Pain Ibuprofen (Motrin) 800 mg PO Q6H PRN PRN Reason: Pain Last Admin: 04/24/19 20:13 Dose: 800 mg Lidocaine HCl (Xylocaine 1%) 50 ml INJECT ONETIME PRN PRN Reason: Laceration repair Methylergonovine Maleate (Methergine) 0.2 mg IM ASDIRECTED PRN PRN Reason: Post Hemorrhage Misoprostol (Cytotec) 200 mcg PO ONETIME PRN PRN Reason: Post Hemorrhage Nalbuphine HCl (Nubain) 10 mg IVPUSH Q1H PRN PRN Reason: Pain (severe 7-10) Oxycodone HCl (Oxycodone) 5 mg PO Q2H PRN PRN Reason: Pain Sodium Chloride (Saline Flush) 10 ml FLUSH ASDIRECTED PRN PRN Reason: Keep Vein Open Sodium Chloride (Saline Flush) 2.5 ml FLUSH ASDIRECTED PRN PRN Reason: Keep Vein Open Sodium Chloride (Normal Saline) 10 ml IV ASDIRECTED PRN PRN Reason: IV Use Sterile Water (Sterile Water For Irrigation) 1,000 ml IRR ASDIRECTED PRN PRN Reason: delivery Last Admin: 01/15/20 02:09 Dose: 1,000 ml Macario Coello (Tucks) 1 pad TOP ASDIRECTED PRN PRN Reason: comfort care Discontinued Medications Fentanyl/Bupivacaine HCl (Fentanyl/Bupivacaine/Ns 2 Mcg-0.125% 250 Ml) Confirm Administered Dose 250 mls @ as directed .ROUTE .STK-MED ONE Stop: 04/23/19 00:09 Last Admin: 04/23/19 10:13 Dose: Not Given Oxytocin/Sodium Chloride (Oxytocin 30 Unit/500 Ml-Ns) Confirm Administered Dose 30 unit in 500 mls @ as directed .ROUTE .STK-MED ONE Stop: 04/23/19 01:24 Last Admin: 04/23/19 10:14 Dose: Not Given - Exam General: Reports: Alert, Oriented HEENT: Reports: Pupils Equal, Pupils Reactive, EOMI, Mucous Membr. Moist/[place] Neck: Reports: Supple Lungs: Reports: Clear to Auscultation, Normal Respiratory Effort Cardiovascular: Reports: Regular Rate, Regular Rhythm GI/Abdominal Exam: Normal Bowel Sounds, Soft, Non-Tender, No Organomegaly, No Distention, No Abnormal Bruit, No Mass, Pelvis Stable (Female) Exam: Normal External Exam, Normal Speculum Exam, Normal Bimanual Exam Rectal (Female) Exam: Normal Exam, Normal Rectal Tone Back Exam: Reports: Normal Inspection, Full Range of Motion Extremities: Normal Inspection, Normal Range of Motion, Non-Tender, No Pedal Edema, Normal Capillary Refill Skin: Reports: Warm, Dry, Intact Wound/Incisions: Reports: Healing Well Neurological: Reports: No New Focal Deficit Psy/Mental Status: Reports: Alert, Normal Affect, Normal Mood
== END 2019-04-25 12:05 | disposition home or self-care (01) | DRG 807 ==
LOC: MW.OB 22:55 → MW.OBCHECK 22:55 → MW.OB 23:18 → MW.OBCHECK 23:18 → OBSVTOIN 04-23 01:54 → MW.OB 04-23 04:29
PROVIDERS: ADMIT Obstetrics & Gynecology; ATTEND Obstetrics & Gynecology
PROC: 10E0XZZ Delivery of Products of Conception, External Approach (ICD-10-PCS; principal; 2019-04-23)
PROC: 3E0S3BZ Introduction of Anesthetic Agent into Epidural Space, Percutaneous Approach (ICD-10-PCS; 2019-04-23)
DX: O77.0 Labor and delivery complicated by meconium in amniotic fluid (principal); Z37.0 Single live birth; Z3A.38 38 weeks gestation of pregnancy; Z91.018 Allergy to other foods; Z79.899 Other long term (current) drug therapy; Z90.89 Acquired absence of other organs; Z90.49 Acquired absence of other specified parts of digestive tract
CPT/HCPCS: 01967; 36415; 59025; 59409; 85014; 85018; 85027; 85460; 86592; 86593; 86850; 86900; 86901; A9270-GY; J2590; J2792; J3010; J7120

== ENCOUNTER 2020-12-27 00:03 | Inpatient (IN) | payer SELFPAY ==
[2020-12-27] MEDS ORDERED: Butorphanol 1 MG/ML SDV IVPUSH PRN (00:10)
[2020-12-27] MEDS ORDERED: Water For Irrigation,Sterile 1,000 ML Container IRR PRN (00:10)
[2020-12-27] MEDS ORDERED: Tranexamic Acid 1,000 MG in Sodium Chloride 0.9% 100 ML IV PRN (00:10)
[2020-12-27] MEDS ORDERED: Nalbuphine 10 MG/1 ML Vial IVPUSH PRN (00:10)
[2020-12-27] MEDS ORDERED: Methylergonovine 0.2 MG/1 ML Amp IM PRN (00:10)
[2020-12-27] MEDS ORDERED: Carboprost Tromethamine 250 MCG/1 ML Amp IM PRN (00:10)
[2020-12-27] MEDS ORDERED: Sodium Chloride 0.9% 2.5 ML Syringe FLUSH PRN (00:10)
[2020-12-27] MEDS ORDERED: Ondansetron 4 MG/2 ML SDV IVPUSH PRN (00:10)
[2020-12-27] MEDS ORDERED: Lidocaine 1% 50 ML MDV INJECT PRN (00:10)
[2020-12-27] MEDS ORDERED: Misoprostol 200 MCG Tab PO PRN (00:10)
[2020-12-27] MEDS ORDERED: Sodium Chloride 0.9% 10 ML Syringe FLUSH PRN (00:10)
[2020-12-27] MEDS ORDERED: Sodium Chloride 0.9% 10 ML SDV IV PRN (00:10)
[2020-12-27] MEDS ORDERED: Lactated Ringers 1,000 ML IV SCH (00:15)
[2020-12-27] MEDS ORDERED: Oxytocin/0.9 % Sodium Chloride 30 UNIT/500 ML BAG IV SCH (00:15)
[2020-12-27] MEDS ORDERED: Ampicillin 2 GM Vial ONE (00:40)
[2020-12-27] MEDS ORDERED: Benzocaine/Menthol 20%-0.5% Spray 78 GM Cannister TOP PRN (01:00)
[2020-12-27] MEDS ORDERED: Docusate Sodium 100 MG Cap PO PRN (01:00)
[2020-12-27] MEDS ORDERED: Lanolin 100% Cream 7 GM Tube TOP PRN (01:00)
[2020-12-27] MEDS ORDERED: Bisacodyl 10 MG Supp RECTAL PRN (01:00)
[2020-12-27] MEDS ORDERED: Acetaminophen 500 MG Tab PO PRN ×2 (01:00)
[2020-12-27] MEDS ORDERED: Ibuprofen 400 MG Tab PO PRN (01:00)
[2020-12-27] MEDS ORDERED: Witch Hazel Medicated Pads 40/Jar TOP PRN (01:00)
--- NOTE | 2020-12-27 01:15 | PCM.LDHP ---
L&D History of Present Illness - General Date of Service: 12/27/20 Admit Problem/Dx: Patient Status Order with Admit Dx/Problem 12/27/20 00:10 Patient Status [ADT] Routine 12/27/20 01:00 Patient Status [ADT] Routine Admission Diagnosis/Problem Admission Diagnosis/Problem Source of Information: Patient History Limitations: Reports: No Limitations - History of Present Illness Introduction:: 35yo @ 36w6d GA present to Labor and delivery in active labor. care complicated by SGA. 1st also complicated by IUGR. Patient was also on Vyvanse. She is O- and seem to have received the rhogam at 28wGA. Rubella immune, GBS negative - Related Data Allergies/Adverse Reactions: Allergies Allergy/AdvReac Type Severity Reaction Status Date / Time lactose Allergy Stomach Verified 09/11/16 15:23 Upset soy Allergy Nausea Verified 10/18/18 17:13 gluton Allergy Mild Stomach Uncoded 12/27/20 01:04 Upset Home Medications: Home Meds Lisdexamfetamine Dimesylate [Vyvanse] 1 tab PO DAILY 06/21/16 [History] Ondansetron [Zofran ODT] 4 mg PO Q4H PRN #12 tab.dis 09/11/16 [Rx] Potassium Chloride 20 meq PO DAILY #7 tablet.er 09/11/16 [Rx] Past Medical History - Past Health History Medical/Surgical History: Denies Medical/Surgical History HEENT History: Reports: None Other HEENT History: wears glasses Cardiovascular History: Reports: None Respiratory History: Reports: None Gastrointestinal History: Reports: Chronic Constipation Other Gastrointestinal History: being tested for SMA syndrome Genitourinary History: Reports: None [employer] History: Reports: Musculoskeletal History: Reports: Fracture Other Musculoskeletal History: hx of fx left heel and right arm (no hardware) Neurological History: Reports: None Psychiatric History: Reports: ADD Endocrine/Metabolic History: Reports: Hyperthyroidism Other Endocrine/Metabolic History: hx of hyperthyroidism, recent tests show thyr oid to be normal Hematologic History: Reports: None Immunologic History: Reports: None Oncologic (Cancer) History: Reports: None Dermatologic History: Reports: Other (See Below) Other Dermatologic History: adult acne - Infectious Disease History Infectious Disease History: Reports: Chicken Pox - Past Surgical History Head Surgeries/Procedures: Reports: None HEENT Surgical History: Reports: Tonsillectomy Cardiovascular Surgical History: Reports: None Respiratory Surgical History: Reports: None GI Surgical History: Reports: Appendectomy Female Surgical History: Reports: None Endocrine Surgical History: Reports: None Neurological Surgical History: Reports: None Musculoskeletal Surgical History: Reports: None Oncologic Surgical History: Reports: None Dermatological Surgical History: Reports: None Social & Family History - Family History Family Medical History: No Pertinent Family History - Caffeine Use Caffeine Use: Reports: None H&P Review of Systems - Review of Systems: Review Of Systems: See Below General: Reports: No Symptoms HEENT: Reports: No Symptoms Pulmonary: Reports: No Symptoms Cardiovascular: Reports: No Symptoms Gastrointestinal: Reports: No Symptoms Genitourinary: Reports: No Symptoms Musculoskeletal: Reports: No Symptoms Skin: Reports: No Symptoms Psychiatric: Reports: No Symptoms Neurological: Reports: No Symptoms Hematologic/Lymphatic: Reports: No Symptoms Immunologic: Reports: No Symptoms L&D Exam - Exam Exam: See Below - Vital Signs Weight: 63.503 kg - OB Specific Contraction Intensity: Moderate to Strong Movement: Active Heart Tones: Present Presentation: Vertex - Hodge Score Hodge Score Cervix Position: Anterior Hodge Score Effacement: >80% Hodge Score Dilation: > 5 cm Hodge Score 's Station: +1, +2 - Exam General: Alert, Oriented Lungs: Normal Respiratory Effort Cardiovascular: Regular Rate Genitourinary: Normal external exam Extremities: Normal Inspection Psychiatric: Alert, Normal Affect, Normal Mood - Patient Data Lab Results Last 24 hrs: Laboratory Results - last 24 hr 12/27/20 Range/Units 00:25 WBC 19.53 H (4.0-11.0) K/uL RBC 4.03 L (4.30-5.90) M/uL Hgb 13.7 (12.0-16.0) g/dL Hct 40.2 (36.0-46.0) % MCV 99.8 H (80.0-98.0) fL MCH 34.0 H (27.0-32.0) pg MCHC 34.1 (31.0-37.0) g/dL RDW Std Deviation 45.1 (28.0-62.0) fl RDW Coeff of Juju 13 (11.0-15.0) % Plt Count 226 (150-400) K/uL MPV 12.30 H (7.40-12.00) fL Result Diagrams: 12/27/20 00:25 - Problem List (1) delivery, delivered SNOMED Code(s): 730951623, [id number] ICD Code: O60.10X0 - LABOR W DELIVERY, UNSP TRIMESTER, UNSP Status: Acute Priority: High Current Visit: Yes (2) Small for gestational age fetus SNOMED Code(s): 733355015 ICD Code: [id number] - Status: Acute Priority: High Current Visit: Yes Problem List Initiated/Reviewed/Updated: Yes Orders Last 24hrs: Active Orders 24 hr Category Date Time Status Patient Status [ADT] Routine ADT 12/27/20 01:00 Ordered Heart Tones [RC] CONTINUOUS Care 12/27/20 00:10 Active Non Stress Test [RC] PER UNIT ROUTINE Care 12/27/20 00:10 Active May Shower [RC] ASDIRECTED Care 12/27/20 00:10 Active May Shower [RC] ASDIRECTED Care 12/27/20 01:00 Ordered Notify Provider [RC] PRN Care 12/27/20 00:10 Active Up ad Vero [RC] ASDIRECTED Care 12/27/20 00:10 Active Up ad Vero [RC] ASDIRECTED Care 12/27/20 01:00 Ordered Vaginal Exam [RC] PRN Care 12/27/20 00:10 Active Vital Signs [RC] PER UNIT ROUTINE Care 12/27/20 00:10 Active Vital Signs [RC] PER UNIT ROUTINE Care 12/27/20 01:00 Ordered CORONAVIRUS COVID-19 NINA [MOLEC] Routine Lab 12/27/20 00:25 Received HEMOGLOBIN/HEMATOCRIT,HH [HEME] Timed Lab 12/28/20 05:11 Ordered RPR (SYPHILIS SERO) W/ RFLX [REF] Routine Lab 12/27/20 00:25 Received TYPE AND SCREEN [BBK] Routine Lab 12/27/20 00:25 Received Acetaminophen [Tylenol Extra Strength] Med 12/27/20 01:00 Ordered 1,000 mg PO Q4H PRN Acetaminophen [Tylenol Extra Strength] Med 12/27/20 01:00 Ordered 500 mg PO Q4H PRN Benzocaine/Menthol [Dermoplast Pain Relief 20%-0.5% Med 12/27/20 01:00 Ordered [place]] 78 gm TOP ASDIRECTED PRN Butorphanol [Stadol] Med 12/27/20 00:10 Active 1 mg IVPUSH Q1H PRN Carboprost Tromethamine [Hemabate DS] Med 12/27/20 00:10 Active 250 mcg IM ASDIRECTED PRN Docusate Sodium [Colace] Med 12/27/20 01:00 Ordered 100 mg PO Q12H PRN Ibuprofen [Motrin] Med 12/27/20 01:00 Ordered 400 mg PO Q4H PRN Ibuprofen [Motrin] Med 12/27/20 01:00 Ordered 800 mg PO Q6H PRN Lactated Ringers [Ringers, Lactated] 1,000 ml Med 12/27/20 00:15 Active IV ASDIRECTED Lanolin [Lansinoh HPA] Med 12/27/20 01:00 Ordered See Dose Instructions TOP ASDIRECTED PRN Lidocaine 1% [Xylocaine 1%] Med 12/27/20 00:10 Active 50 ml INJECT ONETIME PRN Methylergonovine [Methergine] Med 12/27/20 00:10 Active 0.2 mg IM ASDIRECTED PRN Nalbuphine [Nubain] Med 12/27/20 00:10 Active 10 mg IVPUSH Q1H PRN Ondansetron [Zofran] Med 12/27/20 00:10 Active 4 mg IVPUSH Q4H PRN Oxytocin/0.9 % Sodium Chloride [Oxytocin 30 Unit/500 ML Med 12/27/20 00:15 Active -NS] 30 unit in 500 ml IV TITRATE Sodium Chloride 0.9% [Normal Saline] Med 12/27/20 00:10 Active 10 ml IV ASDIRECTED PRN Sodium Chloride 0.9% [Saline Flush] Med 12/27/20 00:10 Active 10 ml FLUSH ASDIRECTED PRN Sodium Chloride 0.9% [Saline Flush] Med 12/27/20 00:10 Active 2.5 ml FLUSH ASDIRECTED PRN Tranexamic Acid [Cyklokapron] 1,000 mg Med 12/27/20 00:10 Active Sodium Chloride 0.9% [Normal Saline] 100 ml IV ONETIME Water For Irrigation,Sterile [Sterile Water for Med 12/27/20 00:10 Active Irrigation] 1,000 ml IRR ASDIRECTED PRN bisacodyL [Dulcolax] Med 12/27/20 01:00 Ordered 10 mg RECTAL ONETIME PRN miSOPROStoL [Cytotec] Med 12/27/20 00:10 Active 200 mcg PO ONETIME PRN witch Oumou [Tucks] Med 12/27/20 01:00 Ordered 1 pad TOP ASDIRECTED PRN Assess Lochia [WOMSER] Per Unit Routine Oth 12/27/20 01:00 Ordered Assess Uterine Involution [WOMSER] Per Unit Routine Oth 12/27/20 01:00 Ordered Scalp Electrode [WOMSER] Per Unit Routine Oth 12/27/20 00:10 Ordered Peripheral IV Discontinue [OM.PC] Routine Oth 12/27/20 01:00 Ordered Peripheral IV Insertion Adult [OM.PC] Routine Ot 12/27/20 00:10 Ordered Resuscitation Status Routine Resus Stat 12/27/20 00:10 Ordered Medication Orders Acetaminophen (Acetaminophen 500 Mg Tab) 500 mg PO Q4H PRN PRN Reason: Pain (mild 1-3) Acetaminophen (Acetaminophen 500 Mg Tab) 1,000 mg PO Q4H PRN PRN Reason: Pain (mild 1-3) Benzocaine/Menthol (Benzocaine/Menthol 20%-0.5% [place] 78 Gm Cannister) 78 gm TOP ASDIRECTED PRN PRN Reason: Perineal Comfort Measure Bisacodyl (Bisacodyl 10 Mg Supp) 10 mg RECTAL ONETIME PRN PRN Reason: Constipation Butorphanol Tartrate (Butorphanol 1 Mg/Ml Sdv) 1 mg IVPUSH Q1H PRN PRN Reason: Pain (severe 7-10) Carboprost Tromethamine (Carboprost Tromethamine 250 Mcg/1 Ml Amp) 250 mcg IM ASDIRECTED PRN PRN Reason: Post Hemorrhage Docusate Sodium (Docusate Sodium 100 Mg Cap) 100 mg PO Q12H PRN PRN Reason: Constipation Emollient Ointment (Lanolin 100% Cream 7 Gm Tube) 0 gm TOP ASDIRECTED PRN PRN Reason: Sore Nipples Oxytocin/Sodium Chloride (Oxytocin 30 Unit/500 Ml-Ns) 30 unit in 500 mls @ 500 mls/hr IV TITRATE [facility] Last Admin: 12/27/20 00:44 Dose: 500 mls/hr Documented by: RATLRAC Tranexamic Acid 1,000 mg/ (Sodium Chloride) 110 mls @ 660 mls/hr IV ONETIME PRN PRN Reason: Bleeding Lactated Ringer's (Ringers, Lactated) 1,000 mls @ 150 mls/hr IV ASDIRECTED [facility] Last Admin: 12/27/20 00:22 Dose: 150 mls/hr Documented by: RATLRAC Ibuprofen (Ibuprofen 400 Mg Tab) 400 mg PO Q4H PRN PRN Reason: Pain (mild 1-3) Ibuprofen (Ibuprofen 800 Mg Tab) 800 mg PO Q6H PRN PRN Reason: Cramping Lidocaine HCl (Lidocaine 1% 50 Ml Mdv) 50 ml INJECT ONETIME PRN PRN Reason: Laceration repair Methylergonovine Maleate (Methylergonovine 0.2 Mg/1 Ml Amp) 0.2 mg IM ASDIRECTED PRN PRN Reason: Post Hemorrhage Misoprostol (Misoprostol 200 Mcg Tab) 200 mcg PO ONETIME PRN PRN Reason: Post Hemorrhage Nalbuphine HCl (Nalbuphine 10 Mg/1 Ml Vial) 10 mg IVPUSH Q1H PRN PRN Reason: Pain (severe 7-10) Ondansetron HCl (Ondansetron 4 Mg/2 Ml Sdv) 4 mg IVPUSH Q4H PRN PRN Reason: Nausea/Vomiting Sodium Chloride (Sodium Chloride 0.9% 10 Ml Syringe) 10 ml FLUSH ASDIRECTED PRN PRN Reason: Keep Vein Open Sodium Chloride (Sodium Chloride 0.9% 2.5 Ml Syringe) 2.5 ml FLUSH ASDIRECTED PRN PRN Reason: Keep Vein Open Sodium Chloride (Sodium Chloride 0.9% 10 Ml Sdv) 10 ml IV ASDIRECTED PRN PRN Reason: IV Use Sterile Water (Water For Irrigation,Sterile 1,000 Ml Container) 1,000 ml IRR A SDIRECTED PRN PRN Reason: delivery Witch Oumou (Witch Oumou Medicated Pads 40/Jar) 1 pad TOP ASDIRECTED PRN PRN Reason: comfort care Assessment/Plan Comment:: 35yo @ 36w6d GA admitted in active labor. care complicated by SGA. Patient was also on Vyvanse. She is O- and seem to have received the rhogam at 28wGA. Rubella immune, GBS negative. Hodge score >10 Cat 1 strip P: Expectant management Anticipate Epidural PRN
--- NOTE | 2020-12-27 01:24 | PCM.DEL ---
L & D Note - General Info Date of Service: 12/27/20 Mother's Due Date: 01/18/21 - Delivery Note Labor: Spontaneous Delivery Outcome: Livebirth Infant Delivery Method: Spontaneous Vaginal Delivery-Single Presentation: Vertex Nuchal Cord: None Anesthesia Type: None Amniotic Fluid Description: Clear Episiotomy Type: None Laceration: None Placenta: Intact, Spontaneous Cord: 3 Vessels Estimated Blood Loss: 100 Resuscitation Needed: No Score 1 min: 8 Score 5 min: 9 Delivery Comments (Free Text/Narrative):: 35yo G3 now P1112 @ 36w6d GA s/p precipitous . care complicated by SGA, and O- and seem to have received the rhogam at 28wGA. Rubella immune, GBS negative. Patient arrived in active labor, SROM and delivered within moments of her arrival. Provider was informed of her admission and less than 10mns later, patient had delivered. of a live female, 4lb 6oz and Apgars 8/9. Delivery without difficulties, attended by the nurse who reported no nuchal cord, no meconium. Baby was placed on Mom's abdomen. Provider arrived 2-3 minutes after the delivery. Cord clamped and cut. Nose and mouth bulb suctioned; Placenta delivered spontaneously, intact. Fundus firm, minimal bleeding. Placenta appears intact with 3 vessel cord. Perineum and vagina inspected, no laceration noted EBL 100cc. Hemostasis. Patient tolerated procedure well, recovering in LDR. by her side. - General Info Date of Service: 12/27/20 Admission Dx/Problem (Free Text): Patient Status Order with Admit Dx/Problem 12/27/20 00:10 Patient Status [ADT] Routine 12/27/20 01:00 Patient Status [ADT] Routine Admission Diagnosis/Problem Admission Diagnosis/Problem Subjective Update: 35yo G3 now P1112 @ 36w6d GA s/p uncomplicated care complicated by SGA, and O- and seem to have received the rhogam at 28wGA. Rubella immune, GBS negative. Mother and baby are doing well, in the recovery room - Review of Systems General: Reports: No Symptoms HEENT: Reports: No Symptoms Pulmonary: Reports: No Symptoms Cardiovascular: Reports: No Symptoms Gastrointestinal: Reports: No Symptoms Genitourinary: Reports: No Symptoms Musculoskeletal: Reports: No Symptoms Skin: Reports: No Symptoms Neurological: Reports: No Symptoms Psychiatric: Reports: No Symptoms - Patient Data Weight - Most Recent: 63.503 kg Lab Results Last 24 Hours: Laboratory Results - last 24 hr 12/27/20 Range/Units 00:25 WBC 19.53 H (4.0-11.0) K/uL RBC 4.03 L (4.30-5.90) M/uL Hgb 13.7 (12.0-16.0) g/dL Hct 40.2 (36.0-46.0) % MCV 99.8 H (80.0-98.0) fL MCH 34.0 H (27.0-32.0) pg MCHC 34.1 (31.0-37.0) g/dL RDW Std Deviation 45.1 (28.0-62.0) fl RDW Coeff of Juju 13 (11.0-15.0) % Plt Count 226 (150-400) K/uL MPV 12.30 H (7.40-12.00) fL Med Orders - Current: Current Medications Acetaminophen (Acetaminophen 500 Mg Tab) 500 mg PO Q4H PRN PRN Reason: Pain (mild 1-3) Acetaminophen (Acetaminophen 500 Mg Tab) 1,000 mg PO Q4H PRN PRN Reason: Pain (mild 1-3) Benzocaine/Menthol (Benzocaine/Menthol 20%-0.5% [place] 78 Gm Cannister) 78 gm TOP ASDIRECTED PRN PRN Reason: Perineal Comfort Measure Bisacodyl (Bisacodyl 10 Mg Supp) 10 mg RECTAL ONETIME PRN PRN Reason: Constipation Butorphanol Tartrate (Butorphanol 1 Mg/Ml Sdv) 1 mg IVPUSH Q1H PRN PRN Reason: Pain (severe 7-10) Carboprost Tromethamine (Carboprost Tromethamine 250 Mcg/1 Ml Amp) 250 mcg IM ASDIRECTED PRN PRN Reason: Post Hemorrhage Docusate Sodium (Docusate Sodium 100 Mg Cap) 100 mg PO Q12H PRN PRN Reason: Constipation Emollient Ointment (Lanolin 100% Cream 7 Gm Tube) 0 gm TOP ASDIRECTED PRN PRN Reason: Sore Nipples Oxytocin/Sodium Chloride (Oxytocin 30 Unit/500 Ml-Ns) 30 unit in 500 mls @ 500 mls/hr IV TITRATE [facility] Last Admin: 12/27/20 00:44 Dose: 500 mls/hr Documented by: Tranexamic Acid 1,000 mg/ (Sodium Chloride) 110 mls @ 660 mls/hr IV ONETIME PRN PRN Reason: Bleeding Lactated Ringer's (Ringers, Lactated) 1,000 mls @ 150 mls/hr IV ASDIRECTED [facility] Last Admin: 12/27/20 00:22 Dose: 150 mls/hr Documented by: Ibuprofen (Ibuprofen 400 Mg Tab) 400 mg PO Q4H PRN PRN Reason: Pain (mild 1-3) Ibuprofen (Ibuprofen 800 Mg Tab) 800 mg PO Q6H PRN PRN Reason: Cramping Lidocaine HCl (Lidocaine 1% 50 Ml Mdv) 50 ml INJECT ONETIME PRN PRN Reason: Laceration repair Methylergonovine Maleate (Methylergonovine 0.2 Mg/1 Ml Amp) 0.2 mg IM ASDIRECTED PRN PRN Reason: Post Hemorrhage Misoprostol (Misoprostol 200 Mcg Tab) 200 mcg PO ONETIME PRN PRN Reason: Post Hemorrhage Nalbuphine HCl (Nalbuphine 10 Mg/1 Ml Vial) 10 mg IVPUSH Q1H PRN PRN Reason: Pain (severe 7-10) Ondansetron HCl (Ondansetron 4 Mg/2 Ml Sdv) 4 mg IVPUSH Q4H PRN PRN Reason: Nausea/Vomiting Sodium Chloride (Sodium Chloride 0.9% 10 Ml Syringe) 10 ml FLUSH ASDIRECTED PRN PRN Reason: Keep Vein Open Sodium Chloride (Sodium Chloride 0.9% 2.5 Ml Syringe) 2.5 ml FLUSH ASDIRECTED PRN PRN Reason: Keep Vein Open Sodium Chloride (Sodium Chloride 0.9% 10 Ml Sdv) 10 ml IV ASDIRECTED PRN PRN Reason: IV Use Sterile Water (Water For Irrigation,Sterile 1,000 Ml Container) 1,000 ml IRR ASDIRECTED PRN PRN Reason: delivery Witch Oumou (Witch Oumou Medicated Pads 40/Jar) 1 pad TOP ASDIRECTED PRN PRN Reason: comfort care Discontinued Medications Ampicillin Sodium (Ampicillin 2 Gm Vial) Confirm Administered Dose 2 gm .ROUTE .STK-MED ONE Stop: 12/27/20 00:41 - Exam General: Alert, Oriented HEENT: Pupils Equal Neck: Supple Lungs: Normal Respiratory Effort Cardiovascular: Regular Rate GI/Abdominal Exam: Soft Extremities: Normal Inspection Skin: Warm Psy/Mental Status: Alert, Normal Affect, Normal Mood - Problem List & Annotations (1) delivery, delivered SNOMED Code(s): 428602683, 009583397 Code(s): O60.10X0 - LABOR W DELIVERY, UNSP TRIMESTER, UNSP Status: Acute Priority: High Current Visit: Yes (2) Small for gestational age fetus SNOMED Code(s): 144105714 Code(s): FFC2210 - Status: Acute Priority: High Current Visit: Yes (3) Precipitous delivery SNOMED Code(s): 948987670, 086025305 Code(s): O62.3 - PRECIPITATE LABOR Status: Acute Priority: High Current Visit: Yes - Problem List Review Problem List Initiated/Reviewed/Updated: Yes - My Orders Last 24 Hours: My Active Orders 12/27/20 00:10 Heart Tones [RC] CONTINUOUS Non Stress Test [RC] PER UNIT ROUTINE May Shower [RC] ASDIRECTED Notify Provider [RC] PRN Up ad Vero [RC] ASDIRECTED Vaginal Exam [RC] PRN Vital Signs [RC] PER UNIT ROUTINE Butorphanol [Stadol] 1 mg IVPUSH Q1H PRN Carboprost Tromethamine [Hemabate DS] 250 mcg IM ASDIRECTED PRN Lidocaine 1% [Xylocaine 1%] 50 ml INJECT ONETIME PRN Methylergonovine [Methergine] 0.2 mg IM ASDIRECTED PRN Nalbuphine [Nubain] 10 mg IVPUSH Q1H PRN Ondansetron [Zofran] 4 mg IVPUSH Q4H PRN Sodium Chloride 0.9% [Normal Saline] 10 ml IV ASDIRECTED PRN Sodium Chloride 0.9% [Saline Flush] 10 ml FLUSH ASDIRECTED PRN Sodium Chloride 0.9% [Saline Flush] 2.5 ml FLUSH ASDIRECTED PRN Tranexamic Acid [Cyklokapron] 1,000 mg Sodium Chloride 0.9% [Normal Saline] 100 ml IV ONETIME Water For Irrigation,Sterile [Sterile Water for Irrigation] 1,000 ml IRR ASDIRECTED PRN miSOPROStoL [Cytotec] 200 mcg PO ONETIME PRN Scalp Electrode [WOMSER] Per Unit Routine Peripheral IV Insertion Adult [OM.PC] Routine Resuscitation Status Routine 12/27/20 00:15 Lactated Ringers [Ringers, Lactated] 1,000 ml IV ASDIRECTED Oxytocin/0.9 % Sodium Chloride [Oxytocin 30 Unit/500 ML-NS] 30 unit in 500 ml IV TITRATE 12/27/20 00:25 CORONAVIRUS COVID-19 NINA [MOLEC] Routine RPR (SYPHILIS SERO) W/ RFLX [REF] Routine TYPE AND SCREEN [BBK] Routine 12/27/20 01:00 Patient Status [ADT] Routine May Shower [RC] ASDIRECTED Up ad Vero [RC] ASDIRECTED Vital Signs [RC] PER UNIT ROUTINE Acetaminophen [Tylenol Extra Strength] 1,000 mg PO Q4H PRN Acetaminophen [Tylenol Extra Strength] 500 mg PO Q4H PRN Benzocaine/Menthol [Dermoplast Pain Relief 20%-0.5% [place]] 78 gm TOP ASDIRECTED PRN Docusate Sodium [Colace] 100 mg PO Q12H PRN Ibuprofen [Motrin] 400 mg PO Q4H PRN Ibuprofen [Motrin] 800 mg PO Q6H PRN Lanolin [Lansinoh HPA] See Dose Instructions TOP ASDIRECTED PRN bisacodyL [Dulcolax] 10 mg RECTAL ONETIME PRN witch Oumou [Tucks] 1 pad TOP ASDIRECTED PRN Assess Lochia [WOMSER] Per Unit Routine Assess Uterine Involution [WOMSER] Per Unit Routine Peripheral IV Discontinue [OM.PC] Routine 12/28/20 05:11 HEMOGLOBIN/HEMATOCRIT,HH [HEME] Timed - Plan Plan:: 35yo G3 now P1112 @ 36w6d GA s/p precipitous care complicated by SGA, and O- and seem to have received the rhogam at 28wGA. Rubella immune, GBS negative. P: Routine care Rhogam PRN
[2020-12-27] MEDS: Ibuprofen 800 MG Tab PO PRN ×2 (01:29→10:14)
--- NOTE | 2020-12-27 09:13 | PCM.PNPP ---
- General Info Date of Service: 12/27/20 Functional Status: Reports: Pain Controlled - Review of Systems General: Reports: No Symptoms HEENT: Reports: No Symptoms Pulmonary: Reports: No Symptoms Cardiovascular: Reports: No Symptoms Gastrointestinal: Reports: No Symptoms Genitourinary: Reports: No Symptoms Musculoskeletal: Reports: No Symptoms Skin: Reports: No Symptoms Neurological: Reports: No Symptoms Psychiatric: Reports: No Symptoms - General Info Date of Service: 12/27/20 - Patient Data Vital Signs - Most Recent: Last Vital Signs Temp 36.3 C 12/27/20 07:59 Pulse 80 12/27/20 07:59 Resp 18 12/27/20 07:59 BP 107/81 12/27/20 07:59 Pulse Ox 96 12/27/20 07:59 Weight - Most Recent: 63.503 kg Lab Results - Last 24 Hours: Laboratory Results - last 24 hr 12/27/20 12/27/20 12/27/20 Range/Units 00:25 00:25 00:25 WBC 19.53 H (4.0-11.0) K/uL RBC 4.03 L (4.30-5.90) M/uL Hgb 13.7 (12.0-16.0) g/dL Hct 40.2 (36.0-46.0) % MCV 99.8 H (80.0-98.0) fL MCH 34.0 H (27.0-32.0) pg MCHC 34.1 (31.0-37.0) g/dL RDW Std Deviation 45.1 (28.0-62.0) fl RDW Coeff of Juju 13 (11.0-15.0) % Plt Count 226 (150-400) K/uL MPV 12.30 H (7.40-12.00) fL SARS-CoV-2 RNA (NINA) NEGATIVE (NEGATIVE) Blood Type O NEGATIVE Antibody Screen NEGATIVE Med Orders - Current: Current Medications Acetaminophen (Acetaminophen 500 Mg Tab) 500 mg PO Q4H PRN PRN Reason: Pain (mild 1-3) Last Admin: 12/27/20 01:31 Dose: 500 mg Documented by: Acetaminophen (Acetaminophen 500 Mg Tab) 1,000 mg PO Q4H PRN PRN Reason: Pain (mild 1-3) Benzocaine/Menthol (Benzocaine/Menthol 20%-0.5% [place] 78 Gm Cannister) 78 gm TOP ASDIRECTED PRN PRN Reason: Perineal Comfort Measure Bisacodyl (Bisacodyl 10 Mg Supp) 10 mg RECTAL ONETIME PRN PRN Reason: Constipation Butorphanol Tartrate (Butorphanol 1 Mg/Ml Sdv) 1 mg IVPUSH Q1H PRN PRN Reason: Pain (severe 7-10) Carboprost Tromethamine (Carboprost Tromethamine 250 Mcg/1 Ml Amp) 250 mcg IM ASDIRECTED PRN PRN Reason: Post Hemorrhage Docusate Sodium (Docusate Sodium 100 Mg Cap) 100 mg PO Q12H PRN PRN Reason: Constipation Emollient Ointment (Lanolin 100% Cream 7 Gm Tube) 0 gm TOP ASDIRECTED PRN PRN Reason: Sore Nipples Oxytocin/Sodium Chloride (Oxytocin 30 Unit/500 Ml-Ns) 30 unit in 500 mls @ 500 mls/hr IV TITRATE [facility] Last Admin: 12/27/20 00:44 Dose: 500 mls/hr Documented by: Tranexamic Acid 1,000 mg/ (Sodium Chloride) 110 mls @ 660 mls/hr IV ONETIME PRN PRN Reason: Bleeding Lactated Ringer's (Ringers, Lactated) 1,000 mls @ 150 mls/hr IV ASDIRECTED [facility] Last Infusion: 12/27/20 00:30 Dose: 999 mls/hr Documented by: Ibuprofen (Ibuprofen 400 Mg Tab) 400 mg PO Q4H PRN PRN Reason: Pain (mild 1-3) Ibuprofen (Ibuprofen 800 Mg Tab) 800 mg PO Q6H PRN PRN Reason: Cramping Last Admin: 12/27/20 01:29 Dose: 800 mg Documented by: Lidocaine HCl (Lidocaine 1% 50 Ml Mdv) 50 ml INJECT ONETIME PRN PRN Reason: Laceration repair Methylergonovine Maleate (Methylergonovine 0.2 Mg/1 Ml Amp) 0.2 mg IM ASDIRECTED PRN PRN Reason: Post Hemorrhage Misoprostol (Misoprostol 200 Mcg Tab) 200 mcg PO ONETIME PRN PRN Reason: Post Hemorrhage Nalbuphine HCl (Nalbuphine 10 Mg/1 Ml Vial) 10 mg IVPUSH Q1H PRN PRN Reason: Pain (severe 7-10) Ondansetron HCl (Ondansetron 4 Mg/2 Ml Sdv) 4 mg IVPUSH Q4H PRN PRN Reason: Nausea/Vomiting Sodium Chloride (Sodium Chloride 0.9% 10 Ml Syringe) 10 ml FLUSH ASDIRECTED PRN PRN Reason: Keep Vein Open Sodium Chloride (Sodium Chloride 0.9% 2.5 Ml Syringe) 2.5 ml FLUSH ASDIRECTED PRN PRN Reason: Keep Vein Open Sodium Chloride (Sodium Chloride 0.9% 10 Ml Sdv) 10 ml IV ASDIRECTED PRN PRN Reason: IV Use Sterile Water (Water For Irrigation,Sterile 1,000 Ml Container) 1,000 ml IRR ASDIRECTED PRN PRN Reason: delivery Witch Oumou (Witch Oumou Medicated Pads 40/Jar) 1 pad TOP ASDIRECTED PRN PRN Reason: comfort care Discontinued Medications Ampicillin Sodium (Ampicillin 2 Gm Vial) Confirm Administered Dose 2 gm .ROUTE .[place]-MED ONE Stop: 12/27/20 00:41 Last Admin: 12/27/20 00:40 Dose: Not Given Documented by: - Interaction Infant Disposition, : in Room with Family Interaction: Holding Infant Feeding: Attempted ; Nursed Fair/Poor Support Person: Significant Other - Recovery Exam Fundal Tone: Firm Fundal Level: At Umbilicus Fundal Placement: Midline Lochia Amount: Small Lochia Color: Rubra/Red Perineum Description: Intact, Minimal Bruising/Swelling Episiotomy/Laceration: None Bladder Status: Voiding Urinary Elimination: Voided - Exam General: Alert, Oriented HEENT: Pupils Equal Neck: Supple Lungs: Clear to Auscultation, Normal Respiratory Effort Cardiovascular: Regular Rate, Regular Rhythm GI/Abdominal Exam: Normal Bowel Sounds, Soft, Non-Tender, No Organomegaly, No Distention, No Abnormal Bruit, No Mass, Pelvis Stable Extremities: Normal Inspection, Normal Range of Motion, Non-Tender, No Pedal Edema, Normal Capillary Refill Skin: Warm, Dry, Intact Wound/Incisions: Healing Well Neurological: No New Focal Deficit Psy/Mental Status: Alert, Normal Affect, Normal Mood - Problem List Review Problem List Initiated/Reviewed/Updated: Yes - Assessment Assessment:: Post normal spontaneous vaginal delivery she is doing well. She would be discharged in a.m. - Plan Plan:: 35yo G3 now P1112 @ 36w6d GA s/p precipitous care complicated by SGA, and O- and seem to have received the rhogam at 28wGA. Rubella immune, GBS negative. P: Routine care Rhogam PRN
--- NOTE | 2020-12-28 08:17 | PCM.PNPP ---
- General Info Date of Service: 12/28/20 Admission Dx/Problem (Free Text): Patient Status Order with Admit Dx/Problem 12/27/20 00:10 Patient Status [ADT] Routine 12/27/20 01:00 Patient Status [ADT] Routine Admission Diagnosis/Problem Admission Diagnosis/Problem Subjective Update: Chandni is a 35 yo current PPD1 S/P uncomplicated to pre-term NBF. O neg/O neg (Rhogam not indicated), RI, GBS neg. Patient has no complaints or concerns at this time. Patient is breast and syringe feeding well, resting comfortably in bed with at bedside. Patient reports she is eating, voiding, ambulating independently and without difficulty. Patient denies any problems or concerns at this time except mild-moderate intermittent uterine cramping relieved with Tylenol and Ibuprofen. Patient reports small vaginal bleeding with no clots. Patient verbalizes her readiness to be discharged home today. Functional Status: Reports: Pain Controlled, Tolerating Diet, Ambulating, Urinating - Review of Systems General: Reports: No Symptoms HEENT: Reports: No Symptoms Pulmonary: Reports: No Symptoms Cardiovascular: Reports: No Symptoms Gastrointestinal: Reports: No Symptoms Genitourinary: Reports: No Symptoms Musculoskeletal: Reports: No Symptoms Skin: Reports: No Symptoms Neurological: Reports: No Symptoms Psychiatric: Reports: No Symptoms - General Info Date of Service: 12/28/20 - Patient Data Vital Signs - Most Recent: Last Vital Signs Temp 97.5 F 12/28/20 07:58 Pulse 67 12/28/20 07:58 Resp 18 12/28/20 07:58 BP 105/63 12/28/20 07:58 Pulse Ox 98 12/28/20 07:58 Weight - Most Recent: 140 lb Lab Results - Last 24 Hours: Laboratory Results - last 24 hr 12/28/20 Range/Units 05:00 Hgb 12.7 (12.0-16.0) g/dL Hct 37.8 (36.0-46.0) % Med Orders - Current: Current Medications Acetaminophen (Acetaminophen 500 Mg Tab) 500 mg PO Q4H PRN PRN Reason: Pain (mild 1-3) Last Admin: 12/27/20 01:31 Dose: 500 mg Documented by: Acetaminophen (Acetaminophen 500 Mg Tab) 1,000 mg PO Q4H PRN PRN Reason: Pain (mild 1-3) Last Admin: 12/27/20 21:14 Dose: 1,000 mg Documented by: Benzocaine/Menthol (Benzocaine/Menthol 20%-0.5% [place] 78 Gm Cannister) 78 gm TOP ASDIRECTED PRN PRN Reason: Perineal Comfort Measure Last Admin: 12/28/20 04:05 Dose: 1 applic Documented by: Bisacodyl (Bisacodyl 10 Mg Supp) 10 mg RECTAL ONETIME PRN PRN Reason: Constipation Butorphanol Tartrate (Butorphanol 1 Mg/Ml Sdv) 1 mg IVPUSH Q1H PRN PRN Reason: Pain (severe 7-10) Carboprost Tromethamine (Carboprost Tromethamine 250 Mcg/1 Ml Amp) 250 mcg IM ASDIRECTED PRN PRN Reason: Post Hemorrhage Docusate Sodium (Docusate Sodium 100 Mg Cap) 100 mg PO Q12H PRN PRN Reason: Constipation Emollient Ointment (Lanolin 100% Cream 7 Gm Tube) 0 gm TOP ASDIRECTED PRN PRN Reason: Sore Nipples Last Admin: 12/28/20 04:05 Dose: 1 applic Documented by: Oxytocin/Sodium Chloride (Oxytocin 30 Unit/500 Ml-Ns) 30 unit in 500 mls @ 500 mls/hr IV TITRATE [facility] Last Admin: 12/27/20 00:44 Dose: 500 mls/hr Documented by: Tranexamic Acid 1,000 mg/ (Sodium Chloride) 110 mls @ 660 mls/hr IV ONETIME PRN PRN Reason: Bleeding Lactated Ringer's (Ringers, Lactated) 1,000 mls @ 150 mls/hr IV ASDIRECTED [facility] Last Infusion: 12/27/20 00:30 Dose: 999 mls/hr Documented by: Ibuprofen (Ibuprofen 400 Mg Tab) 400 mg PO Q4H PRN PRN Reason: Pain (mild 1-3) Ibuprofen (Ibuprofen 800 Mg Tab) 800 mg PO Q6H PRN PRN Reason: Cramping Last Admin: 12/27/20 10:14 Dose: 800 mg Documented by: Lidocaine HCl (Lidocaine 1% 50 Ml Mdv) 50 ml INJECT ONETIME PRN PRN Reason: Laceration repair Methylergonovine Maleate (Methylergonovine 0.2 Mg/1 Ml Amp) 0.2 mg IM ASDIRECTED PRN PRN Reason: Post Hemorrhage Misoprostol (Misoprostol 200 Mcg Tab) 200 mcg PO ONETIME PRN PRN Reason: Post Hemorrhage Nalbuphine HCl (Nalbuphine 10 Mg/1 Ml Vial) 10 mg IVPUSH Q1H PRN PRN Reason: Pain (severe 7-10) Ondansetron HCl (Ondansetron 4 Mg/2 Ml Sdv) 4 mg IVPUSH Q4H PRN PRN Reason: Nausea/Vomiting Sodium Chloride (Sodium Chloride 0.9% 10 Ml Syringe) 10 ml FLUSH ASDIRECTED PRN PRN Reason: Keep Vein Open Sodium Chloride (Sodium Chloride 0.9% 2.5 Ml Syringe) 2.5 ml FLUSH ASDIRECTED PRN PRN Reason: Keep Vein Open Sodium Chloride (Sodium Chloride 0.9% 10 Ml Sdv) 10 ml IV ASDIRECTED PRN PRN Reason: IV Use Sterile Water (Water For Irrigation,Sterile 1,000 Ml Container) 1,000 ml IRR ASDIRECTED PRN PRN Reason: delivery Witch Oumou (Witch Oumou Medicated Pads 40/Jar) 1 pad TOP ASDIRECTED PRN PRN Reason: comfort care Last Admin: 12/28/20 04:05 Dose: 1 tub Documented by: Discontinued Medications Ampicillin Sodium (Ampicillin 2 Gm Vial) Confirm Administered Dose 2 gm .ROUTE .STK-MED ONE Stop: 12/27/20 00:41 Last Admin: 12/27/20 00:40 Dose: Not Given Documented by: - Infant Interaction Disposition, : in Room with Family Infant Interaction: Holding Feeding: Attempted ; Nursed Fair/Poor Support Person: Significant Other - Recovery Exam Fundal Tone: Firm Fundal Level: 2 Fingerbreadths Below Umbilicus Fundal Placement: Midline Lochia Amount: Scant Lochia Color: Rubra/Red Perineum Description: Intact, Minimal Bruising/Swelling Episiotomy/Laceration: None Bladder Status: Voiding Urinary Elimination: Voided - Exam General: Alert, Oriented, Cooperative, No Acute Distress HEENT: Pupils Equal, Mucous Membr. Moist/[place] Neck: Supple Lungs: Clear to Auscultation, Normal Respiratory Effort Cardiovascular: Regular Rate, Regular Rhythm GI/Abdominal Exam: Normal Bowel Sounds, Soft, Non-Tender, No Organomegaly, No Distention Extremities: Normal Inspection, Normal Range of Motion, Non-Tender, No Pedal Edema, Normal Capillary Refill Skin: Warm, Dry, Intact Neurological: No New Focal Deficit Psy/Mental Status: Alert, Normal Affect, Normal Mood - Problem List & Annotations (1) Precipitous delivery SNOMED Code(s): 298740016, 817544311 Code(s): O62.3 - PRECIPITATE LABOR Status: Acute Priority: High Current Visit: Yes (2) delivery, delivered SNOMED Code(s): 596723107, 783773261 Code(s): O60.10X0 - LABOR W DELIVERY, UNSP TRIMESTER, UNSP Status: Acute Priority: High Current Visit: Yes (3) Small for gestational age fetus SNOMED Code(s): 921932314 Code(s): URK2543 - Status: Acute Priority: High Current Visit: Yes (4) Lactating mother SNOMED Code(s): 112605570, 269103390 Code(s): Z39.1 - ENCOUNTER FOR CARE AND EXAMINATION OF LACTATING MOTHER Status: Acute Current Visit: Yes - Problem List Review Problem List Initiated/Reviewed/Updated: Yes - Assessment Assessment:: Post normal spontaneous vaginal delivery she is doing well. She would be discharged in a.m. - Plan Plan:: Plan to continue inpatient course. Hemodynamically stable, afebrile. Hemoglobin 12.7, F/U as indicated. Continue PO analgesia as ordered. Continue breast and syringe feeding, eating, voiding, ambulating independently. Plan to D/C in am pending release. Dr. Colon notified and agreeable with POC.
--- NOTE | 2020-12-28 08:21 | PCM.DCSUM1 ---
Discharge Summary - Hospital Course Diagnosis: Stroke: No - Discharge Data Discharge Date: 12/28/20 Discharge Disposition: Home, Self-Care 01 Condition: Good - Referral to Home Health Primary Care Physician: PCP None - Discharge Diagnosis/Problem(s) (1) Precipitous delivery SNOMED Code(s): 351830443, 991958335 ICD Code: O62.3 - PRECIPITATE LABOR Status: Acute Priority: High Current Visit: Yes (2) delivery, delivered SNOMED Code(s): 364551729, [id number] ICD Code: O60.10X0 - LABOR W DELIVERY, UNSP TRIMESTER, UNSP Status: Acute Priority: High Current Visit: Yes (3) Small for gestational age fetus SNOMED Code(s): 934278584 ICD Code: [id number] - Status: Acute Priority: High Current Visit: Yes (4) Lactating mother SNOMED Code(s): 072402840, 937821819 ICD Code: Z39.1 - ENCOUNTER FOR CARE AND EXAMINATION OF LACTATING MOTHER Status: Acute Current Visit: Yes - Patient Instructions Diet: Usual Diet as Tolerated, Regular Diet as Tolerated, Drink 8-10+ Glasses/Day Activity: As Tolerated, No Strenuous Activities, Rest and Relax Today Driving: May Drive Today Showering/Bathing: May Shower Showering/Bathing, Other: May sitz bathe for perineal comfort Notify Provider of: Fever, Increased Pain, Swelling and Redness, Drainage, Nausea and/or Vomiting - Discharge Plan *PRESCRIPTION DRUG MONITORING PROGRAM REVIEWED*: No *COPY OF PRESCRIPTION DRUG MONITORING REPORT IN PATIENT RAJIV: No Prescriptions/Med Rec: Ibuprofen [Motrin] 800 mg PO Q8H PRN #30 tablet PRN Reason: Cramping Home Medications: Home Meds Lisdexamfetamine Dimesylate [Vyvanse] 1 tab PO DAILY 06/21/16 [History] Ondansetron [Zofran ODT] 4 mg PO Q4H PRN #12 tab.dis 09/11/16 [Rx] Ibuprofen [Motrin] 800 mg PO Q8H PRN #30 tablet 12/28/20 [Rx] Oxygen Therapy Mode: Room Air Referrals: Melina Dolan MD [Physician] - 02/09/21 1:00 pm (You may bring your with to your appointment. Masks are required.) - Discharge Summary/Plan Comment DC Time >30 min.: No Total # of Minutes for Discharge Time: dfg Discharge Summary/Plan Comment: Hemodynamically stable, afebrile. Independent with ADLs, pain well controlled. Ibuprofen prescription sent to pharmacy. Warning S/Ss, when to call for help discussed, no questions or concerns. F/U in office in 6 weeks for visit or sooner if problem arise. - General Info Date of Service: 12/28/20 Admission Dx/Problem (Free Text: Patient Status Order with Admit Dx/Problem 12/27/20 00:10 Patient Status [ADT] Routine 12/27/20 01:00 Patient Status [ADT] Routine Admission Diagnosis/Problem Admission Diagnosis/Problem Subjective Update: Chandni is a 35 yo current PPD1 S/P uncomplicated to pre-term NBF. O neg/O neg (Rhogam not indicated), RI, GBS neg. Patient has no complaints or concerns at this time. Patient is breast and syringe feeding well, resting comfortably in bed with at bedside. Patient reports she is eating, voiding, ambulating independently and without difficulty. Patient denies any problems or concerns at this time except mild-moderate intermittent uterine cramping relieved with Tylenol and Ibuprofen. Patient reports small vaginal bleeding with no clots. Patient verbalizes her readiness to be discharged home today. Functional Status: Reports: Pain Controlled, Tolerating Diet, Ambulating, Urinating - Review of Systems General: Reports: No Symptoms HEENT: Reports: No Symptoms Pulmonary: Reports: No Symptoms Cardiovascular: Reports: No Symptoms Gastrointestinal: Reports: No Symptoms Genitourinary: Reports: No Symptoms Musculoskeletal: Reports: No Symptoms Skin: Reports: No Symptoms Neurological: Reports: No Symptoms Psychiatric: Reports: No Symptoms - Patient Data Vitals - Most Recent: Last Vital Signs Temp 97.5 F 12/28/20 07:58 Pulse 67 12/28/20 07:58 Resp 18 12/28/20 07:58 BP 105/63 12/28/20 07:58 Pulse Ox 98 12/28/20 07:58 Weight - Most Recent: 140 lb Lab Results - Last 24 hrs: Laboratory Results - last 24 hr 12/28/20 Range/Units 05:00 Hgb 12.7 (12.0-16.0) g/dL Hct 37.8 (36.0-46.0) % Med Orders - Current: Current Medications Acetaminophen (Acetaminophen 500 Mg Tab) 500 mg PO Q4H PRN PRN Reason: Pain (mild 1-3) Last Admin: 12/27/20 01:31 Dose: 500 mg Documented by: Acetaminophen (Acetaminophen 500 Mg Tab) 1,000 mg PO Q4H PRN PRN Reason: Pain (mild 1-3) Last Admin: 12/27/20 21:14 Dose: 1,000 mg Documented by: Benzocaine/Menthol (Benzocaine/Menthol 20%-0.5% [place] 78 Gm Cannister) 78 gm TOP ASDIRECTED PRN PRN Reason: Perineal Comfort Measure Last Admin: 12/28/20 04:05 Dose: 1 applic Documented by: Bisacodyl (Bisacodyl 10 Mg Supp) 10 mg RECTAL ONETIME PRN PRN Reason: Constipation Butorphanol Tartrate (Butorphanol 1 Mg/Ml Sdv) 1 mg IVPUSH Q1H PRN PRN Reason: Pain (severe 7-10) Carboprost Tromethamine (Carboprost Tromethamine 250 Mcg/1 Ml Amp) 250 mcg IM ASDIRECTED PRN PRN Reason: Post Hemorrhage Docusate Sodium (Docusate Sodium 100 Mg Cap) 100 mg PO Q12H PRN PRN Reason: Constipation Emollient Ointment (Lanolin 100% Cream 7 Gm Tube) 0 gm TOP ASDIRECTED PRN PRN Reason: Sore Nipples Last Admin: 12/28/20 04:05 Dose: 1 applic Documented by: Oxytocin/Sodium Chloride (Oxytocin 30 Unit/500 Ml-Ns) 30 unit in 500 mls @ 500 mls/hr IV TITRATE [facility] Last Admin: 12/27/20 00:44 Dose: 500 mls/hr Documented by: Tranexamic Acid 1,000 mg/ (Sodium Chloride) 110 mls @ 660 mls/hr IV ONETIME PRN PRN Reason: Bleeding Lactated Ringer's (Ringers, Lactated) 1,000 mls @ 150 mls/hr IV ASDIRECTED [facility] Last Infusion: 12/27/20 00:30 Dose: 999 mls/hr Documented by: Ibuprofen (Ibuprofen 400 Mg Tab) 400 mg PO Q4H PRN PRN Reason: Pain (mild 1-3) Ibuprofen (Ibuprofen 800 Mg Tab) 800 mg PO Q6H PRN PRN Reason: Cramping Last Admin: 12/27/20 10:14 Dose: 800 mg Documented by: Lidocaine HCl (Lidocaine 1% 50 Ml Mdv) 50 ml INJECT ONETIME PRN PRN Reason: Laceration repair Methylergonovine Maleate (Methylergonovine 0.2 Mg/1 Ml Amp) 0.2 mg IM ASDIRECTED PRN PRN Reason: Post Hemorrhage Misoprostol (Misoprostol 200 Mcg Tab) 200 mcg PO ONETIME PRN PRN Reason: Post Hemorrhage Nalbuphine HCl (Nalbuphine 10 Mg/1 Ml Vial) 10 mg IVPUSH Q1H PRN PRN Reason: Pain (severe 7-10) Ondansetron HCl (Ondansetron 4 Mg/2 Ml Sdv) 4 mg IVPUSH Q4H PRN PRN Reason: Nausea/Vomiting Sodium Chloride (Sodium Chloride 0.9% 10 Ml Syringe) 10 ml FLUSH ASDIRECTED PRN PRN Reason: Keep Vein Open Sodium Chloride (Sodium Chloride 0.9% 2.5 Ml Syringe) 2.5 ml FLUSH ASDIRECTED PRN PRN Reason: Keep Vein Open Sodium Chloride (Sodium Chloride 0.9% 10 Ml Sdv) 10 ml IV ASDIRECTED PRN PRN Reason: IV Use Sterile Water (Water For Irrigation,Sterile 1,000 Ml Container) 1,000 ml IRR ASDIRECTED PRN PRN Reason: delivery Witch Oumou (Witch Oumou Medicated Pads 40/Jar) 1 pad TOP ASDIRECTED PRN PRN Reason: comfort care Last Admin: 12/28/20 04:05 Dose: 1 tub Documented by: Discontinued Medications Ampicillin Sodium (Ampicillin 2 Gm Vial) Confirm Administered Dose 2 gm .ROUTE .STK-MED ONE Stop: 12/27/20 00:41 Last Admin: 12/27/20 00:40 Dose: Not Given Documented by: - Exam General: Reports: Alert, Oriented, Cooperative, No Acute Distress HEENT: Reports: Pupils Equal, Mucous Membr. Moist/[place] Neck: Reports: Supple Lungs: Reports: Clear to Auscultation, Normal Respiratory Effort Cardiovascular: Reports: Regular Rate, Regular Rhythm GI/Abdominal Exam: Normal Bowel Sounds, Soft, Non-Tender, No Organomegaly, No Distention (Female) Exam: Normal External Exam, Enlarged Uterus, Vaginal Bleeding Rectal (Female) Exam: Deferred Back Exam: Reports: Normal Inspection, Full Range of Motion Extremities: Normal Inspection, Normal Range of Motion, Non-Tender, No Pedal Edema, Normal Capillary Refill Skin: Reports: Warm, Dry, Intact Neurological: Reports: No New Focal Deficit Psy/Mental Status: Reports: Alert, Normal Affect, Normal Mood
[2020-12-28 16:14] VITALS: BP 115/74; PULSE 62
== END 2020-12-28 23:25 | disposition home or self-care (01) | DRG 807 ==
LOC: MW.OB 00:03 → MW.OBCHECK 00:03 → MW.OB 00:10 → MW.OBCHECK 00:10 → OBSVTOIN 00:40 → MW.OB 04:00
PROVIDERS: ADMIT Obstetrics & Gynecology Obstetrics; ATTEND Obstetrics & Gynecology
PROC: 10E0XZZ Delivery of Products of Conception, External Approach (ICD-10-PCS; principal; 2020-12-27)
PROC: 10907ZC Drainage of Amniotic Fluid, Therapeutic from Products of Conception, Via Natural or Artificial Opening (ICD-10-PCS; 2020-12-27)
DX: O60.14X0 Preterm labor third trimester with preterm delivery third trimester, not applicable or unspecified (principal); Z37.0 Single live birth; O26.893 Other specified pregnancy related conditions, third trimester; Z67.41 Type O blood, Rh negative; Z3A.36 36 weeks gestation of pregnancy; O36.5930 Maternal care for other known or suspected poor fetal growth, third trimester, not applicable or unspecified; O62.3 Precipitate labor; Z20.822 Contact with and (suspected) exposure to COVID-19
CPT/HCPCS: 36415; 59025; 59409; 59414; 85014; 85018; 85027; 86592; 86850; 86900; 86901; A9270-GY; J2590; J7120; U0002

== ENCOUNTER 2021-07-07 09:46 | Emergency (ER) | payer OTHER ==
[2021-07-07] MEDS ORDERED: Lidocaine 1% PF 2 ML SDV INJECT ONE ×2 (09:49→10:07)
[2021-07-07] MEDS ORDERED: Bacitracin Oint 1 GM U/D Packet TOP ONE (09:49)
[2021-07-07] MEDS ORDERED: LORazepam 1 MG Tab ONE (09:53)
[2021-07-07] MEDS ORDERED: LORazepam 1 MG Tab PO ONE (09:53)
[2021-07-07 10:01] VITALS: BP 152/112; PULSE 111
[2021-07-07] MEDS ORDERED: Lidocaine 1% 2 ML ONE (10:05)
== END 2021-07-07 11:51 | disposition home or self-care (01) ==
LOC: MW.ED 10:27
DX: S61.112A Laceration without foreign body of left thumb with damage to nail, initial encounter (principal); F41.9 Anxiety disorder, unspecified; F32.A Depression, unspecified; F98.8 Other specified behavioral and emotional disorders with onset usually occurring in childhood and adolescence; Z91.011 Allergy to milk products; Z91.018 Allergy to other foods; Z79.899 Other long term (current) drug therapy; W26.8XXA Contact with other sharp object(s), not elsewhere classified, initial encounter
CPT/HCPCS: 12002; 73140; 99283; A9270; 12001